=== PATIENT | female | born 1950 | race Caucasian/White ===

== ENCOUNTER 2018-11-24 15:01 | Outpatient (CLI) | payer MEDICARE ==
[~2018-11-24 15:01] MED LIST: Iopamidol 370 76% 100 ML VIAL ONE
[2018-11-24 15:28] LABS: Estimated GFR-MDRD - POC Greater than 90
--- NOTE | 2018-11-24 15:58 | CT ---
CT CHEST WITH IV CONTRAST: HISTORY: Chest mass, abnormal chest x-ray COMPARISON: None CORRELATION: Chest radiograph from earlier today FINDINGS: There is a large right intrathoracic mass measuring 6 x 5 x 7.5 cm involving the right paratracheal, hilar, subcarinal regions with obstruction of the right upper lobe bronchus and accompanying right upper lobe atelectasis. There is also a 2.3 cm nonobstructive mass in the right bronchus intermedius. There is narrowing of the pulmonary arterial branches of the right upper lobe. A small right pleural effusion is present. There is mild infiltrate in the anterior aspect of the lef t upper lobe. A 6 cm solid parenchymal nodule is noted in the left lower lobe. A 4 mm peripheral nodule is seen posteriorly in the left upper lobe. There are vascular calcifications without evidence of aneurysmal dilatation of the thoracic aorta. No pericardial or left-sided pleural effusion is seen. There are degenerative changes in the spine. No osseous lytic or osteoblastic lesions is noted. Upper abdominal tomograms are unremarkable. IMPRESSION: Right lung malignancy with lymph sena metastatic disease.
== END 2018-11-24 15:02 | disposition home or self-care (01) ==
LOC: CT 15:01
PROVIDERS: ATTEND Nurse Practitioner Family
DX: R22.2 Localized swelling, mass and lump, trunk (principal); C34.91 Malignant neoplasm of unspecified part of right bronchus or lung; C77.9 Secondary and unspecified malignant neoplasm of lymph node, unspecified
CPT/HCPCS: 71260; 82565; Q9967

== ENCOUNTER → 2018-11-26 | Day surgery (SDC) | payer MEDICARE ==
--- NOTE | 2018-11-25 14:54 | HP ---
The patient is scheduled for a bronchoscopy in the morning. HISTORY OF PRESENT ILLNESS: A 68-year-old female, a pack-a-day smoker for 30 years, quit smoking about 5 years ago when she had a diagnosis of pneumonia. Though I reviewed her chest x-ray from 2013, I did not see an obvious infiltrate or mass. She has done well until the last several months. The patient has had some increasing shortness of breath, cough, and some sinus congestion. X-ray was taken which revealed a right upper lung mass. CT confirmed the extensive right lung opacification 6 cm with a 4 mm nodule in the left upper lung, obstructing mass in the right bronchus intermedius. There was evidence of right paratracheal hilar and subcarinal adenopathy. Except for slight cough, she is asymptomatic, though she does complain of some difficulty breathing, but she can walk a block without getting markedly short of breath. No weight loss. No hemoptysis. No chest pain. PAST MEDICAL HISTORY: Coronary artery disease, high cholesterol, depression, anxiety. PAST SURGICAL HISTORY: Stent in 2004 and pneumonia in 2013. CHRONIC MEDICATIONS: 1. Advair 250/50 twice a day recently started. 2. DuoNeb several times a day as needed. 3. Atorvastatin 20. 4. Plavix 75. 5. Zoloft 100. 6. Metoprolol 50. ALLERGIES: PENICILLIN. SOCIAL HISTORY: Alcohol, minimal. Tobacco, quit 4 years ago. No substance abuse. She works for a dentist's office for many years, retired. REVIEW OF SYSTEMS: Ten-point, negative. PHYSICAL EXAMINATION: VITAL SIGNS: O2 saturation is 94% on room air, pulse 80, respiratory rate 18, and blood pressure 140/70. NECK: Adenopathy in the neck. No clubbing. CHEST: Decreased breath sounds, right lung. Left lung, unremarkable. There is no wheezing. CARDIAC: Normal S1 and S2. No gallops. ABDOMEN: No masses. DIAGNOSTIC DATA: Pulmonary function tests a presently shows moderately severe COPD with an FEV1 of 47% predicted. IMPRESSION: 1. Right upper lung mass with extensive ipsilateral hilar subcarinal adenopathy. 2. Moderately severe chronic obstructive pulmonary disease. 3. Coronary artery disease, status post single stent. 4. Former smoker, anxiety. Diagnostic bronchoscopy and biopsies will be performed tomorrow. PET scan has been ordered. We will see her following that. Job ID: [id number]
[2018-11-25 14:56] VITALS: BMI 27.8
[~2018-11-26] MED LIST changes: +Benzocaine 20% Spray 60 ML CAN ONE; +Bupivacaine 0.25% HCL 30 ML VIAL ONE; +Fentanyl 100 MCG/2 ML VIAL ONE; -Iopamidol 370 76% 100 ML VIAL ONE; +Lidocaine 1% (PF) 30 ML VIAL ONE; +Lidocaine 4% PF 5 ML AMP NEB SCH; +Midazolam HCl 2 mg/2 ml Vial ONE; +Sodium Chloride 0.9% 1,000 ML IV SCH
--- NOTE | 2018-11-26 10:09 | OP ---
DATE OF PROCEDURE: 11/26/2018 PROCEDURE PERFORMED: Bronchoscopy with biopsy. INDICATION: Right upper lung mass, rule out bronchogenic carcinoma. POSTBRONCHOSCOPY DIAGNOSIS: Right upper lung mass, rule out bronchogenic carcinoma. The right upper lung bronchus was completely occluded with a large nodular friable mass lesion. DESCRIPTION OF PROCEDURE: After informed consent, the patient received DuoNeb with 4 mL of 4% lidocaine. During the procedure, she received a total of 2 of Versed and 50 Fentanyl. The right nostril was prepped with lidocaine jelly. Cetacaine spray was sprayed in the back of the throat. The Olympus video flexible bronchoscope was then passed via the right nostril. Pharynx, hypopharynx and vocal cords were visualized, which were normal. Entering the trachea, this was slightly blunted into the right lung. The mainstem bronchus was slightly irregular. The entire right upper lung was completely occluded by a large polypoid mass. It appeared very smooth. I was able to maneuver the bronchoscope below the mass into the lower lobe bronchus. The bronchus intermedius, right middle lobe and right lower lobe, all were visualized without any gross abnormality noticed. The area of the right upper lung was lavaged with normal saline. Multiple biopsies from the peripheral mass were done. This blood profusely from the biopsy. It required 1:10,000 epinephrine, a total of 10 mL to control the bleeding. Multiple biopsies obtained and brushings were obtained from the same area. The patient tolerated the procedure well. The left lung was inspected following the biopsy, which was unremarkable. No endobronchial obstruction or blood was seen. The biopsy was sent to pathology, brushings for cytology. Washing was sent for cytology. BRIEF DISCHARGE NOTE: The patient tolerated the procedure well. Results reviewed well to the patient and family. Further recommendation above. Job ID: [id number]
== END ==
LOC: SDC 06:44
PROVIDERS: ATTEND Internal Medicine Pulmonary Disease
PROC: 0BD48ZX Extraction of Right Upper Lobe Bronchus, Via Natural or Artificial Opening Endoscopic, Diagnostic (ICD-10-PCS; principal; 2018-11-26)
PROC: 0BDC8ZX Extraction of Right Upper Lung Lobe, Via Natural or Artificial Opening Endoscopic, Diagnostic (ICD-10-PCS; 2018-11-26)
DX: C34.11 Malignant neoplasm of upper lobe, right bronchus or lung (principal); I10 Essential (primary) hypertension; K21.9 Gastro-esophageal reflux disease without esophagitis; I25.10 Atherosclerotic heart disease of native coronary artery without angina pectoris; M81.0 Age-related osteoporosis without current pathological fracture; E78.00 Pure hypercholesterolemia, unspecified; F32.9 Major depressive disorder, single episode, unspecified; F41.9 Anxiety disorder, unspecified; J44.9 Chronic obstructive pulmonary disease, unspecified; E78.2 Mixed hyperlipidemia; Z87.891 Personal history of nicotine dependence; Z79.01 Long term (current) use of anticoagulants; Z79.899 Other long term (current) drug therapy; Z88.0 Allergy status to penicillin; Z88.1 Allergy status to other antibiotic agents
CPT/HCPCS: 88104; 88112; 88305; 88341; 88342; 88360; 99152; 99153; J2001; J2250; J3010; S0020

== ENCOUNTER 2018-12-03 10:15 | Day surgery (SDC) | payer MEDICARE ==
[2018-12-03] MEDS ORDERED: Levofloxacin 500 mg/D5W 100 ml Premix Bag ONE (11:23)
[2018-12-03] MEDS ORDERED: Bupivacaine HCl 0.5%/Epinephrine 1:200,000/PF 30 ml Vial ONE ×2 (13:52→13:56)
[2018-12-03] MEDS ORDERED: Lidocaine 2% PF 5 ML VIAL ONE ×2 (13:52→13:56)
[2018-12-03] MEDS ORDERED: Fentanyl 100 MCG/2 ML VIAL ONE (13:57)
--- NOTE | 2018-12-03 15:14 | RAD ---
XR Chest 1 View HISTORY: Lung cancer, Mediport placement FINDINGS: The heart size is normal. The aorta is tortuous. There is a left subclavian Port-A-Cath with tip in t he projection of the SVC. No pneumothorax is seen. There is a right hilar mass and atelectatic change in the right upper lobe.
--- NOTE | 2018-12-03 20:54 | OP ---
DATE OF PROCEDURE: 12/03/2018 PREOPERATIVE DIAGNOSIS: Lung cancer, poor IV access. POSTOPERATIVE DIAGNOSIS: Lung cancer, poor IV access. PROCEDURE PERFORMED: Left subclavian vein low-profile MediPort. ANESTHESIA: TIVA, local 0.5% Marcaine with epinephrine 30 mL mixed with 2% Xylocaine 10 mL, fluoroscopy used. DESCRIPTION OF PROCEDURE: The patient was taken to the operating room, where in supine position and under intravenous sedation, neck and chest prepared with ChloraPrep and draped in routine fashion. Local anesthetic was infiltrated in the skin and subcutaneous tissue about the operative site. Trocar cannulated the left subclavian vein, J-wire threaded, trocar catheter removed. Skin site was enlarged sharply creating a subcutaneous pocket. Dilator and Peel-Away sheath placed over the J-wire in the subclavian vein and J-wire and dilator removed. Catheter placed with the Peel-Away sheath. Peel-Away sheath removed fluoroscopically, tip placed in optimal position in superior vena cava, tailored to length and connected to the MediPort, placed in subcutaneous pocket, secured with 2 interrupted sutures of 3-0 Prolene. Subcutaneous tissue was approximated with 3-0 Monocryl, skin with subdermal 4-0 Monocryl, and [place] glue applied. Esposito needle aspirated the port and good return of venous blood, and then flushed with heparinized saline solution. Fluoroscopy revealed good line and MediPort placement. Job ID: [id number]
== END 2018-12-03 15:37 | disposition home or self-care (01) ==
LOC: SDC 10:15
PROVIDERS: ATTEND Specialist
PROC: 0JH63WZ Insertion of Totally Implantable Vascular Access Device into Chest Subcutaneous Tissue and Fascia, Percutaneous Approach (ICD-10-PCS; principal; 2018-12-03)
DX: C34.11 Malignant neoplasm of upper lobe, right bronchus or lung (principal); C77.9 Secondary and unspecified malignant neoplasm of lymph node, unspecified; J44.9 Chronic obstructive pulmonary disease, unspecified; Z87.891 Personal history of nicotine dependence; Z79.02 Long term (current) use of antithrombotics/antiplatelets; Z79.899 Other long term (current) drug therapy; Z88.0 Allergy status to penicillin; Z88.1 Allergy status to other antibiotic agents
CPT/HCPCS: 36561; 71045; C1788; J0670; J1642; J1956; J2001; J3010

== ENCOUNTER 2018-12-14 12:43 | Outpatient (CLI) | payer MEDICARE ==
[~2018-12-14 12:43] MED LIST changes: -Benzocaine 20% Spray 60 ML CAN ONE; -Bupivacaine 0.25% HCL 30 ML VIAL ONE; -Fentanyl 100 MCG/2 ML VIAL ONE; +Gadobenate Dimeglumine 529 MG/1 ML (20ML VIAL) ONE; -Lidocaine 1% (PF) 30 ML VIAL ONE; -Lidocaine 4% PF 5 ML AMP NEB SCH; -Midazolam HCl 2 mg/2 ml Vial ONE; -Sodium Chloride 0.9% 1,000 ML IV SCH
--- NOTE | 2018-12-14 13:53 | MRI ---
Exam: Brain MRI with and without contrast HISTORY: Lung cancer. Evaluate for brain metastases. COMPARISON: None FINDINGS: Gradient echo sequence: No hemorrhage Calvarium: Appropriate T1 marrow signal intensity Midline brain parenchyma: Unremarkable Cerebrum:No parenchymal mass, mass effect or midline shift. Brain volume, age-appropriate. Cortical g ray-white matter differentiation is preserved. T2 and FLAIR white matter hyperintensities due to chronic small vessel ischemic change. Ventricles: No evidence of hydrocephalus. Sinuses and mastoid air cells: Adequate aeration Diffusion: Central arterial flow is maintained. Absent restricted diffusion. Postcontrast images: No pathologic enhancement of the brain parenchyma. IMPRESSION: 1. Absent restricted diffusion. No acute infarct 2. No pathologic enhancement of the brain parenchyma.
== END 2018-12-14 12:44 | disposition home or self-care (01) ==
LOC: MRI 12:43
PROVIDERS: ATTEND Radiology Radiation Oncology
DX: C34.90 Malignant neoplasm of unspecified part of unspecified bronchus or lung (principal)
CPT/HCPCS: 70553; A9577

== ENCOUNTER 2019-02-24 09:06 | Outpatient (CLI) | payer MEDICARE ==
--- NOTE | 2019-02-24 13:02 | PET ---
PET CT: HISTORY: A 68-year-old female with lung cancer. Exam requested to evaluate response to treatment. The patient is undergoing chemotherapy. COMPARISON: PET CT dated 12/02/2018. TECHNIQUE: PET scan with CT attenuation correction was performed from the base of the brain to the proximal thig hs following the intravenous administration of 12 millicuries of F18 fluorodeoxyglucose in the right antecubital fossa. FINDINGS: There is new focal nodular uptake in the superior segment of the right lower lobe which measures 2.3 cm in AP dimension and has an SUV of 4.2. Residual hilar uptake is seen with an SUV of 4.4. Increased uptake in the right paratracheal lymph node is noted with an SUV of 3.3. The remainder of the lesion s noted on the previous exam have otherwise resolved in the interim. There is physiologic activity in the GI and tracts. No hypermetabolic liver, adrenal or skeletal lesions are seen. CT scan used for attenuation correction demonstrates no evidence of pleural effusions or ascites. IMPRESSION: Mixed response to therapy since 12/02/2018. POS: ASTRID
== END 2019-02-24 09:07 | disposition home or self-care (01) ==
LOC: PET 09:06
PROVIDERS: ATTEND Internal Medicine Hematology & Oncology
DX: C34.90 Malignant neoplasm of unspecified part of unspecified bronchus or lung (principal)
CPT/HCPCS: 78815; A9552

== ENCOUNTER 2019-05-10 10:25 | Outpatient (CLI) | payer MEDICARE ==
--- NOTE | 2019-05-10 11:04 | RAD ---
EXAM: Chest 2 views: HISTORY: Bronchitis COMPARISON: 11/24/2018 FINDINGS: There is a normal-sized cardiomediastinal silhouette. A left subclavian Mediport is seen with its ti p in the superior vena cava. The previously seen right upper lobe opacification has significantly improved. However, there appears to be volume loss in the right upper lobe and slight opacity of the right upper lobe. The bones are unremarkable. IMPRESSION: Improvement in right upper lobe opacification
== END 2019-05-10 10:26 | disposition home or self-care (01) ==
LOC: SCSRAD 10:25
PROVIDERS: ATTEND Nurse Practitioner Family
DX: J40 Bronchitis, not specified as acute or chronic (principal); R91.8 Other nonspecific abnormal finding of lung field
CPT/HCPCS: 71046

== ENCOUNTER 2019-06-12 09:55 | Inpatient (IN) | payer MEDICARE ==
[2019-06-12] MEDS ORDERED: Dexamethasone 10 MG/ML VIAL ONE (10:51)
[2019-06-12] MEDS ORDERED: Cefepime 2 GM VIAL ONE (10:51)
[2019-06-12 10:56] LABS: ALT (SGPT) 16 U/L (8-55); AST (SGOT) 22 U/L (5-34); Albumin 4.1 g/dL (3.4-4.8); Alkaline Phosphatase 103 U/L (40-110); Anion Gap 21 mmol/L (10-20); BUN (Urea Nitrogen) 42 mg/dL (9.8-20.1); Bilirubin, Total 0.7 mg/dL (0.2-1.2); Calc. Creatinine Clearance 0 mL/min (70-130); Calcium 9.9 mg/dL (7.8-10.44); Carbon Dioxide 21 mmol/L (23-31); Chloride 96 mmol/L (98-107); Estimated GFR-MDRD 20; Globulin 3.8 g/dL (2.4-3.5); Glucose 112 mg/dL (80-115); Potassium 3.5 mmol/L (3.5-5.1); Protein, Total 7.9 g/dL (6.0-8.3); Sodium 134 mmol/L (136-145)
--- NOTE | 2019-06-12 10:58 | RAD ---
EXAM: Single view of the chest HISTORY: Chest pain and wheezing COMPARISON: 05/10/2019 FINDINGS: Single view of the chest shows a normal sized cardiomediastinal silhouette. The Mediport i s unchanged in position. There is collapse of the right upper lobe. Increased interstitial markings are seen in the lung bases. The bones are unremarkable. IMPRESSION: Right upper lobe collapse. This likely is sequelae from a known right hilar mass
[2019-06-12 11:00] LABS: Band 7 % (5-11); Hemoglobin 14.7 g/dL (12.0-16.0); Lymphocytes 21 % (21-51); MDiff Complete? YES; Mean Corpuscular HGB CONC 33.7 g/dL (32.0-36.0); Mean Corpuscular Hemoglobin 28.4 pg (27.0-31.0); Mean Corpuscular Volume 84.2 fL (78.0-98.0); Mean Platelet Volume 7.7 fL (7.4-10.4); Monocytes 9 % (0-10); Neutrophil 62 % (42-75); Platelet Count 207 thou/uL (130-400); RBC Distribution Width 14.1 % (11.5-14.5); Red Blood Cell (RBC) Count 5.16 mill/uL (4.20-5.40); White Blood Cell (WBC) Count 20.2 thou/uL (4.8-10.8)
[2019-06-12] MEDS: Cefepime 2 GM in Sodium Chloride 0.9% 100 ML IVPB SCH (11:00)
[2019-06-12 11:12] LABS: CK (CPK) 74 U/L (29-168); Lipase 12 U/L (8-78)
[2019-06-12 11:18] LABS: Bacteria/HPF None Seen HPF (None Seen); Bilirubin Negative (Negative); Blood, Urine Negative (Negative); Clarity Clear (Clear); Glucose, Urine (Dipstick) Normal (Negative); Leukocyte Negative Leu/uL (Negative); Nitrite Negative (Negative); Protein, Urine (Dipstick) 30 mg/dL (Neg-Trace); RBC/HPF 0-3 HPF (0-3); Squamous Epithelial None Seen HPF (0-3); WBC/HPF 0-3 HPF (0-3)
[2019-06-12 11:30] LABS: CKMB 1.9 ng/mL (0-6.6)
[2019-06-12] MEDS ORDERED: Ondansetron ODT 4 MG TAB SL PRN (14:09)
[2019-06-12] MEDS ORDERED: Ondansetron PF 4 MG/2 ML Vial IVP PRN (14:09)
[2019-06-12] MEDS: Sodium Chloride 0.9% 1,000 ML IV SCH ×2 (14:21→22:51)
[2019-06-12] MEDS ORDERED: Sodium Chloride 0.9% 1,000 ML IV SCH (15:00)
[2019-06-12 18:30] VITALS: BMI 27.7
--- NOTE | 2019-06-12 19:31 | PDOC.HHP ---
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 Over the past week, has been eating and drinking less, had a couple of low volume vomiting episodes the day prior to presentation and appeared weaker than usual, so came to the ED. Endorses dry cough over the past few days and not having a bowel movement for the past 3 days whereas baseline daily. Has no other complaints and denies fever , chills, night sweats, chest pain, pleuritic pain, palpitations, dyspnea, sputum production, abdominal pain, diarrhea, dysuria, skin lesion, recent travel , exposure to sick contacts, recent change in medications. ED Course: In the ED, was found to be hypotensive, tachypnic, and tachycardic so was administered a bolus, after which promptly improved. She was admitted for sepsis Hospitalist ROS - Review of Systems Constitutional: reports: weakness, malaise. denies: fever, chills, sweats, other Eyes: denies: pain, vision change, conjunctivae inflammation, eyelid inflammation, redness, other ENT: denies: ear pain, ear discharge, nose pain, nose discharge, nose congestion , mouth pain, mouth swelling, throat pain, throat swelling, other Respiratory: reports: cough, dry. denies: shortness of breath, hemoptysis, SOB with excertion, pleuritic pain, sputum, wheezing, other Cardiovascular: denies: chest pain, palpitations, orthopnea, paroxysmal noc. dyspnea, edema, light headedness, other Gastrointestinal: reports: nausea, vomiting, constipation. denies: abdominal pain, diarrhea, melena, hematochezia Genitourinary: denies: dysuria, frequency, incontinence, hematuria, retention, other Musculoskeletal: reports: back pain Skin: denies: rash, lesions, hilda, bruising, other Neurological: reports: weakness. denies: numbness, incoordination, change in speech, confusion, seizures - Medication Medications: Active Medications Generic Name Dose Route Start Last Admin Trade Name Freq PRN Reason Stop Dose Admin Sodium Chloride 1,000 mls @ 120 mls/hr 06/12/19 14:09 06/12/19 14:21 Normal Saline 0.9% IV 06/13/19 02:09 1,000 mls .[id number] PAULA Administration Cefepime HCl 2 gm/ Sodium 100 mls @ 200 mls/hr 06/12/19 11:00 06/12/19 11:00 Chloride IVPB Not Given Q24HR [facility] Hospitalist History - Past Medical History Cardiac: reports: CAD, HTN Pulmonary: reports: Other (squamous cell carcinoma of right lung; patient and family at bedside deny ever being diagnosed with COPD or asthma). denies: asthma, COPD Rheumatologic: reports: no pertinent history Infectious Disease: reports: Other (pneumonia a few weeks ago) ENT: reports: no pertinent history Endocrine: reports: no pertinent history - Past Surgical History Past Surgical History: reports: Appendectomy, Hysterectomy Other Surgical History: lung biopsy - Family History Family History: reports: cardiac disorder, hypertension - Social History Smoking Status: Former smoker Tobacco Type: cigarettes Alcohol: reports: Occassional Drugs: reports: none Living Situation: With Family Domestic Violence: Negative Activity level: independent ambulation - Exam General Appearance: NAD, awake alert, ill appearing Eye: PERRL, anicteric sclera ENT: normocephalic atraumatic ENT - other findings: no nuchal rigidiy, brudsinski -ve Neck: supple, symmetric, no JVD Heart: no murmur, no gallops, no rubs, normal peripheral pulses Heart - other findings: regular rhythm, tachycardic; left mediport appears noninfected Respiratory: no wheezes, no rales, no ronchi Respiratory - other findings: severely reduced right lung sounds; left lung sounds unremarkable Gastrointestinal: soft, non-distended, normal bowel sounds Gastrointestinal - other findings: diffuse mild tenderness mostly epigastric Extremities: no edema Neurological: cranial nerve grossly intact, no focal deficits Psychiatric: normal affect, normal behavior, oriented to person, oriented to place. negative: oriented to time Hospitalist Results - Labs Result Diagrams: 06/12/19 10:21 06/12/19 10:21 Lab results: WBC 20.2 thou/uL (4.8-10.8) H 06/12/19 10:21 Hgb 14.7 g/dL (12.0-16.0) 06/12/19 10:21 Hct 43.5 % (36.0-47.0) 06/12/19 10:21 MCV 84.2 fL (78.0-98.0) 06/12/19 10:21 Plt Count 207 thou/uL (130-400) 06/12/19 10:21 Band Neuts % (Manual) 7 % (5-11) 06/12/19 10:21 Sodium 134 mmol/L (136-145) L 06/12/19 10:21 Potassium 3.5 mmol/L (3.5-5.1) 06/12/19 10:21 Chloride 96 mmol/L (98-107) L 06/12/19 10:21 Carbon Dioxide 21 mmol/L (23-31) L 06/12/19 10:21 BUN 42 mg/dL (9.8-20.1) H 06/12/19 10:21 Creatinine 2.39 mg/dL (0.6-1.1) H 06/12/19 10:21 Glucose 112 mg/dL (80-115) 06/12/19 10:21 Lactic Acid 1.8 mmol/L (0.5-2.2) 06/12/19 10:21 Calcium 9.9 mg/dL (7.8-10.44) 06/12/19 10:21 Total Bilirubin 0.7 mg/dL (0.2-1.2) 06/12/19 10:21 AST 22 U/L (5-34) 06/12/19 10:21 ALT 16 U/L (8-55) 06/12/19 10:21 Alkaline Phosphatase 103 U/L (40-110) 06/12/19 10:21 Creatine Kinase 74 U/L (29-168) 06/12/19 10:38 CK-MB (CK-2) 1.9 ng/mL (0-6.6) 06/12/19 10:43 Troponin I 0.029 ng/mL (< 0.028) H 06/12/19 10:43 B-Natriuretic Peptide 78.6 pg/mL (0-100) 06/12/19 10:38 Serum Total Protein 7.9 g/dL (6.0-8.3) 06/12/19 10:21 Albumin 4.1 g/dL (3.4-4.8) 06/12/19 10:21 Lipase 12 U/L (8-78) 06/12/19 10:38 Urine Ketones 20 mg/dL (Negative) A 06/12/19 10:36 Urine Blood Negative (Negative) 06/12/19 10:36 Urine Nitrite Negative (Negative) 06/12/19 10:36 Ur Leukocyte Esterase Negative Chandra/uL (Negative) 06/12/19 10:36 Urine RBC 0-3 HPF (0-3) 06/12/19 10:36 Urine WBC 0-3 HPF (0-3) 06/12/19 10:36 Ur Squamous Epith Cells None Seen HPF (0-3) 06/12/19 10:36 Urine Bacteria None Seen HPF (None Seen) 06/12/19 10:36 - EKG Interpretation EKG: sinus tachycardia with no acute ischemic signs Hospitalist H&P A/P - Problem (1) Sepsis associated hypotension Code(s): A41.9 - SEPSIS, UNSPECIFIED ORGANISM; I95.9 - HYPOTENSION, UNSPECIFIED Status: Acute (2) Decreased oral intake Code(s): R63.8 - OTHER SYMPTOMS AND SIGNS CONCERNING FOOD AND FLUID INTAKE Status: Acute (3) Constipation Code(s): K59.00 - CONSTIPATION, UNSPECIFIED Status: Acute (4) Acute renal failure Status: Acute - Plan Plan: #sepsis #recurrent postobstructive pneumonia -qSOFA 3/3 on presentation -BP improved s/p bolus -left thorax mediport appears noninfected; if patient has bacteremia, may require removal -CXR shows collapsed RUL due to mass effect; breathing and saturating well on 2L NC -started on vanc and cefepime, infectious workup pending -last time she received chemo reportedly 04/14; however, patient endorses taking chemo about a week ago; will clarify #reduced oral intake -likely due to sepsis, possibly recent reinitiation of chemo (will clarify) -has no signs or symptoms c/w colitis #ANGELIKA -likely prerenal due to reduced PO intake -may be due to chemo (will clarify) #constipation -baseline 1 BM / day -last BM 3 days ago; likely due to reduced oral intake #dispo/PPX code: full code; is surrogate decision maker GI PPX: no indication DVT PPX: enoxeparin Plan: -holding home respiratory treatments since per family, patient never diagnosed with COPD or asthma and treatments were for recent pneumonia episode -holding metoprolol for labile BP -continue vanc, cef, IVF; most likely etiology at this point postobstructive pneumonia considering CXR findings and recent pneumonia; pending infectious workup -BMP, CBC in AM
[2019-06-12] MEDS: Vancomycin HCl 1 GM in Premix Bag 1 BAG IVPB SCH (22:51)
[2019-06-13] MEDS: Sodium Chloride 0.9% 1,000 ML IV SCH ×3 (01:48→15:08)
[2019-06-13 05:23] LABS: #Lymphocytes 0.5 thou/uL (1.20-3.40); #Monocytes 0.9 thou/uL (0.11-0.59); #Neutrophils 11.7 thou/uL (1.40-6.50); %Basophils 0.1 % (0.0-1.0); %Eosinophils 0.2 % (0.0-10.0); %Lymphocytes 3.9 % (21.0-51.0); %Monocytes 6.8 % (0.0-10.0); %Neutrophils 89.1 % (42.0-75.0); Hemoglobin 11.4 g/dL (12.0-16.0); Mean Corpuscular HGB CONC 33.1 g/dL (32.0-36.0); Mean Corpuscular Volume 84.8 fL (78.0-98.0); Mean Platelet Volume 7.2 fL (7.4-10.4); Platelet Count 152 thou/uL (130-400); RBC Distribution Width 13.8 % (11.5-14.5); Red Blood Cell (RBC) Count 4.06 mill/uL (4.20-5.40); White Blood Cell (WBC) Count 13.1 thou/uL (4.8-10.8)
[2019-06-13 05:45] LABS: Anion Gap 10 mmol/L (10-20); BUN (Urea Nitrogen) 21 mg/dL (9.8-20.1); Calc. Creatinine Clearance 108 mL/min (70-130); Calcium 8.8 mg/dL (7.8-10.44); Carbon Dioxide 25 mmol/L (23-31); Chloride 104 mmol/L (98-107); Estimated GFR-MDRD Greater than 90; Glucose 138 mg/dL (80-115); Magnesium 1.7 mg/dL (1.6-2.6); Potassium 3.1 mmol/L (3.5-5.1); Sodium 136 mmol/L (136-145)
[2019-06-13] MEDS: Clopidogrel Bisulfate 75 MG TAB PO SCH (09:00)
[2019-06-13] MEDS ORDERED: Enoxaparin Sodium 30 MG/0.3 ML SYRINGE SC SCH (09:00)
[2019-06-13] MEDS ORDERED: Prevnar 13-Val Conj/PF 0.5 ML SYRINGE IM ONE (09:00)
[2019-06-13] MEDS: Atorvastatin Calcium 20 MG TAB PO SCH (09:27)
[2019-06-13] MEDS: Cefepime 2 GM in Sodium Chloride 0.9% 100 ML IVPB SCH (10:34)
[2019-06-13] MEDS: Vancomycin HCl 1 GM in Premix Bag 1 BAG IVPB SCH ×2 (11:17→23:56)
--- NOTE | 2019-06-13 11:29 | RAD ---
CHEST 1 VIEW: Date: 06/13/2019 HISTORY: Follow-up pneumonia. COMPARISON: 06/12/2019. FINDINGS: There has been considerable worsening of the right upper lobe atelectasis with what appears to be com plete right upper lobe collapse at this point. Patchy parenchymal changes noted in both bases, somewh at more prominent in the right base, concerning for pneumonia or some postobstructive atelectasis. Bi lateral pleural effusions. Heterogeneous bone demineralization. Left subclavian catheter and injectio n port. IMPRESSION: Considerable worsening in the right upper lobe atelectasis from prior study. Focal parenchymal change s in the right lower lobe, possibly pneumonia and/or atelectasis, with some patchy parenchymal change s in the left base. Small pleural effusions bilaterally. CODE T. POS: TPC
--- NOTE | 2019-06-13 14:33 | PDOC.PALCO ---
Palliative Care Consult - Consult Details Requesting Physician: Dr Reagan Reason for Consult: goals of care Family Members Present: None initially - Pertinent HPI 68 year old female who was diagnosed with Lung Cancer in Nov 2018. Received chemo to treat. She relayed that at home she experienced a decrease in appetite and overall oral intake over the past week, with vomiting day prior to presentation to the emergency room. Emergency room evaluation identified hypotension, tachycardia, and suspected sepsis. 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 - Pertinent PMH Squamous cell carcinoma right lung, CAD, HTN, other marin no significant medical history. - Social History Smoking Status: Former smoker Smoking: cigarettes Alcohol Use: occasional Drug Use History: none Living Situation: - Medications MAR Reviewed: Yes - Allergies Allergies/Adverse Reactions: Allergies Allergy/AdvReac Type Severity Reaction Status Date / Time erythromycin base Allergy Unknown Verified 12/02/18 14:47 [Erythromycin Base] Penicillins Allergy Unknown Verified 06/12/19 14:36 - Subjective Awake, alert. Complains of mild constipation. Cheerful and talkative. - ROS Constitutional: weakness ENT: other (Negative for difficulity swallowing, congestion) Respiratory: shortness of breath, other (negative for cough. ) Cardiology: other (Negative for chest pain, discomfort ) Gastrointestinal: constipation Genitourinary: other Neurological: other (negative for numbness, confusion) Skin: other (Negative for changes in skin texture, rash or lesions) - Objective Vital Signs: Vital Signs - Most Recent Temp Pulse Resp BP Pulse Ox 97.3 F L 97 18 163/76 H 94 L 06/13/19 12:35 06/13/19 12:35 06/13/19 12:35 06/13/19 12:35 06/13/19 12:35 Palliative Performance Scale: 70 - Physical Exam Constitutional: ill appearing HEENT: EOMI, moist MMs, sclera anicteric Respiratory: no wheezing (Appears mildly short of breath with conversation) Cardiovascular: no significant murmur Gastrointestinal: continent, non-tender, positive bowel sounds Genitourinary: continent Musculoskeletal: no cyanosis, no clubbing Neurology: moves all 4 limbs, no focal deficits Skin: cap refill <2 seconds, no lesions, no rash Psychiatric: A&O x 3, normal mood - Problem List (1) Palliative care encounter Code(s): Z51.5 - ENCOUNTER FOR PALLIATIVE CARE Current Visit: Yes Status: Acute (2) Sepsis Code(s): A41.9 - SEPSIS, UNSPECIFIED ORGANISM Current Visit: Yes Status: Acute (3) Squamous cell carcinoma Code(s): BHT4384 - Current Visit: Yes Status: Acute (4) Constipation Code(s): K59.00 - CONSTIPATION, UNSPECIFIED Current Visit: Yes Status: Acute (5) Decreased oral intake Code(s): R63.8 - OTHER SYMPTOMS AND SIGNS CONCERNING FOOD AND FLUID INTAKE Current Visit: Yes Status: Acute - Plan/Recommendations Plan: Initial Palliative Care meeting with patient. Introduced palliative care, and symptom management and goals of care. Patient gave short life review, she was a dental media center assistant and her greatest neftali is her family and crafting. *PRN medication for constipation *Initiated goal of care conversation, patient states she is hopeful that aggressive therapies will allow her to have a meaningful life. *Family and visitors arrived during visit, will continue to follow. Communicated with Thomas Treviño RNenterprise business architect, please also refer to her notes as needed. [50] minutes spent on this encounter with >50% of the time in counseling and coordination of care. Thank you for this very appropriate consult.
[2019-06-13] MEDS ORDERED: Bisacodyl 5 MG TAB PO PRN (14:44)
[2019-06-13 22:23] LABS: Vancomycin, Trough 8.9 ug/mL
[2019-06-13] MEDS ORDERED: Magnesium Oxide 400 MG TAB PO SCH (22:30)
[2019-06-13] MEDS: Potassium Chloride 20 MEQ TAB PO SCH (23:57)
[2019-06-14] MEDS: Sodium Chloride 0.9% 1,000 ML IV SCH ×2 (00:03→20:10)
--- NOTE | 2019-06-14 00:17 | PDOC.HOSPP ---
- Subjective Encounter Date: 06/13/19 Encounter Time: 11:00 Subjective: no overnight events. This morning, feels much better and at baseline. Appetite improved, ambulating without issues, and has no complaints. - Objective Vital Signs & Weight: Vital Signs (12 hours) Temp Pulse Resp BP Pulse Ox 06/13/19 22:31 88 18 94 L 06/13/19 20:00 98.2 F 97 16 164/73 H 93 L 06/13/19 19:17 94 18 94 L 06/13/19 17:00 142/64 H 06/13/19 15:17 90 18 94 L 06/13/19 12:35 97.3 F L 97 18 163/76 H 94 L Weight Admit Weight 161 lb 8 oz Weight 161 lb 8 oz I&O: 06/12/19 06/13/19 06/14/19 06:59 06:59 06:59 Intake Total 1358 Output Total 400 Balance 958 Result Diagrams: 06/13/19 04:24 06/13/19 04:24 Hospitalist ROS - Review of Systems Constitutional: denies: fever, chills, sweats, weakness, malaise, other Respiratory: denies: cough, dry, shortness of breath, hemoptysis, SOB with excertion, pleuritic pain, sputum, wheezing, other Cardiovascular: denies: chest pain, palpitations, orthopnea, paroxysmal noc. dyspnea, edema, light headedness, other Gastrointestinal: denies: nausea, vomiting, abdominal pain, diarrhea, constipation, melena, hematochezia, other Genitourinary: denies: dysuria, frequency, incontinence, hematuria, retention, other Neurological: reports: weakness. denies: numbness, incoordination, change in speech, confusion, seizures - Medication Medications: Active Medications Generic Name Dose Route Start Last Admin Trade Name Freq PRN Reason Stop Dose Admin Albuterol/Ipratropium 3 ml 06/13/19 02:30 06/13/19 22:31 Duoneb NEB 3 ml [id number] PAULA Administration Atorvastatin Calcium 20 mg 06/13/19 09:00 06/13/19 09:27 Lipitor PO 20 mg DAILY PAULA Administration Clopidogrel Bisulfate 75 mg 06/13/19 09:00 06/13/19 09:00 Plavix PO Not Given DAILY [facility] Enoxaparin Sodium 30 mg 02/17/20 09:00 06/13/19 09:00 Lovenox SC Not Given 0900 PAULA Vancomycin HCl 1 gm/ Device 200 mls @ 200 mls/hr 06/12/19 23:00 06/13/19 23: 56 IVPB 200 mls 1100,2300 PAULA Administration Cefepime HCl 2 gm/ Sodium 100 mls @ 200 mls/hr 06/12/19 11:00 06/13/19 10:34 Chloride IVPB 100 mls Q24HR PAULA Administration Sodium Chloride 1,000 mls @ 75 mls/hr 06/13/19 01:48 06/14/19 00:03 Normal Saline 0.9% IV 1,000 mls .[id number] PAULA Administration Magnesium Oxide 400 mg 06/13/19 22:30 06/13/19 23:57 Magnesium Oxide PO 06/14/19 00:30 400 mg NOW PAULA Administration Potassium Chloride 40 meq 06/13/19 22:30 06/13/19 23:57 K-Dur PO 06/14/19 02:31 40 meq 0230,2230 PAULA Administration Sertraline HCl 100 mg 06/13/19 09:00 06/13/19 09:27 Zoloft PO 100 mg DAILY PAULA Administration - Exam General Appearance: NAD, awake alert Eye: PERRL ENT: normocephalic atraumatic Neck: supple, symmetric, no JVD Heart: RRR, no murmur, no gallops, no rubs Respiratory: no wheezes, no rales, no ronchi Respiratory - other findings: left lung sound normal; right lung upper and mid cain no breath sounds Gastrointestinal: soft, non-tender, non-distended, normal bowel sounds Extremities: no edema Psychiatric: normal affect, normal behavior, A&O x 3 Hosp A/P (1) Sepsis associated hypotension Code(s): A41.9 - SEPSIS, UNSPECIFIED ORGANISM; I95.9 - HYPOTENSION, UNSPECIFIED Status: Acute (2) Decreased oral intake Code(s): R63.8 - OTHER SYMPTOMS AND SIGNS CONCERNING FOOD AND FLUID INTAKE Status: Acute (3) Constipation Code(s): K59.00 - CONSTIPATION, UNSPECIFIED Status: Acute (4) Acute renal failure Status: Acute - Plan -unlikely infectious etiology based on presentation and infectious workup; likely result of mass effect of tumor -CXR worse, showing right tracheal deviation as well was superior deviation of right horizontal fissure, c/w postobtructive upper lobe collapse Plan: -consult pulmonology -continue supportive care -deescalate antibiotics
[2019-06-14] MEDS ORDERED: Vancomycin HCl 500 MG in Sodium Chloride 0.9% 100 ML IVPB SCH (00:30)
[2019-06-14] MEDS: Potassium Chloride 20 MEQ TAB PO SCH (03:42)
[2019-06-14 06:51] LABS: #Lymphocytes 0.9 thou/uL (1.20-3.40); #Monocytes 0.8 thou/uL (0.11-0.59); #Neutrophils 9.2 thou/uL (1.40-6.50); %Basophils 0.1 % (0.0-1.0); %Eosinophils 0.2 % (0.0-10.0); %Lymphocytes 8.4 % (21.0-51.0); %Monocytes 7.1 % (0.0-10.0); %Neutrophils 84.2 % (42.0-75.0); Hemoglobin 10.2 g/dL (12.0-16.0); Mean Corpuscular HGB CONC 32.9 g/dL (32.0-36.0); Mean Corpuscular Hemoglobin 27.9 pg (27.0-31.0); Mean Corpuscular Volume 84.8 fL (78.0-98.0); Mean Platelet Volume 6.8 fL (7.4-10.4); Platelet Count 169 thou/uL (130-400); RBC Distribution Width 13.6 % (11.5-14.5); Red Blood Cell (RBC) Count 3.64 mill/uL (4.20-5.40)
[2019-06-14 07:00] LABS: INR-International Normal Ratio 1.2; Prothrombin Time 14.7 SEC (12.0-14.7)
[2019-06-14 07:01] LABS: PTT 52.5 SEC (22.9-36.1)
[2019-06-14 07:11] LABS: Anion Gap 10 mmol/L (10-20); BUN (Urea Nitrogen) 8 mg/dL (9.8-20.1); Calc. Creatinine Clearance 131 mL/min (70-130); Calcium 8.7 mg/dL (7.8-10.44); Carbon Dioxide 29 mmol/L (23-31); Chloride 103 mmol/L (98-107); Estimated GFR-MDRD Greater than 90; Glucose 110 mg/dL (80-115); Magnesium 1.6 mg/dL (1.6-2.6); Potassium 3.6 mmol/L (3.5-5.1); Sodium 138 mmol/L (136-145)
[2019-06-14] MEDS: Atorvastatin Calcium 20 MG TAB PO SCH ×2 (09:00→13:01)
[2019-06-14] MEDS: Magnesium Oxide 400 MG TAB PO SCH ×2 (09:00→13:00)
[2019-06-14] MEDS: Clopidogrel Bisulfate 75 MG TAB PO SCH ×2 (09:00→12:59)
--- NOTE | 2019-06-14 09:56 | RAD ---
CHEST 1 VIEW: HISTORY: Upper lobe collapse FINDINGS Persistent right upper lobe atelectasis with some parenchymal changes in the right infrahilar region and some right pleural effusion and some associated right-sided volume loss. Stable increased linear and interstitial markings in the left chest. IMPRESSION: Overall stable chest as above. POS: ASTRID
--- NOTE | 2019-06-14 10:20 | PDOC.PALPN ---
Palliative Progress Note - Subjective Awake, alert. Family at bedside. NPO for possible procedure by aboriginal community council member. C/ O dry mucous membranes. - Objective Vital Signs: Vital Signs - Most Recent Temp Pulse Resp BP Pulse Ox 98.2 F 90 16 143/92 H 95 06/14/19 07:17 06/14/19 08:15 06/14/19 07:17 06/14/19 07:17 06/14/19 07:17 - Physical Exam Constitutional: ill appearing HEENT: EOMI, sclera anicteric Deviation from normal: Dry mucous membranes Deviation from normal: Absent rught upper/mid Shortness of breath with minimal exertion Cardiovascular: RRR Gastrointestinal: continent, non-tender, positive bowel sounds Genitourinary: continent Musculoskeletal: no cyanosis, no clubbing Neurology: moves all 4 limbs Skin: cap refill <2 seconds, no lesions, no rash Deviation from normal: Pallor Psychiatric: A&O x 3, normal mood - Assessment (1) Palliative care encounter Code(s): Z51.5 - ENCOUNTER FOR PALLIATIVE CARE Current Visit: Yes Status: Acute (2) Sepsis Code(s): A41.9 - SEPSIS, UNSPECIFIED ORGANISM Current Visit: Yes Status: Acute (3) Squamous cell carcinoma Code(s): FHK3139 - Current Visit: Yes Status: Acute (4) Constipation Code(s): K59.00 - CONSTIPATION, UNSPECIFIED Current Visit: Yes Status: Acute (5) Decreased oral intake Code(s): R63.8 - OTHER SYMPTOMS AND SIGNS CONCERNING FOOD AND FLUID INTAKE Current Visit: Yes Status: Acute - Plan Plan: *Biotene for dry mucous membranes. *States not constipation today, BM this morning, reinforced that if needed she has medication PRN for constipation *Denies Pain *Weakness, also states weakness for 2-3 days after she receives chemo at home. Offered OT for assistance and teaching with family to help with transfers and safety measures at home. Patient refused today, however will consider referral. *Continue to work with PT/ becomes short of breath with ambulation and minimal exertion. Will follow and assist with Goals of care as needed Thomas Treviño RNdial screw assembler also following patient, please refer to her notes in note section. [40] minutes spent on this encounter with >50% of the time in counseling and coordination of care. - ROS Constitutional: alert, weakness Eyes: other (negative for visual changes) ENT: other (Dry oral membranes) Respiratory: shortness of breath, shortness of breath with extertion Cardiology: other (Negative for chest pain/discomfort or palpitations) Gastrointestinal: other (Negative for constipation, diarrhea, nausea) Genitourinary: other (Negative for frequency, urgency) Musculoskeletal: other (Negative for pain ) Skin: other (Negative for wounds, lesions, skin tears) Psychological: other (Denies depression, anxiety)
[2019-06-14] MEDS ORDERED: Vancomycin 1.5 GRAM/300 ML BAG 1.5 GM in Premix Bag 1 BAG IVPB SCH (11:00)
[2019-06-14] MEDS: Cefepime 2 GM in Sodium Chloride 0.9% 100 ML IVPB SCH (12:19)
--- NOTE | 2019-06-14 12:51 | CON ---
DATE OF CONSULTATION: HISTORY OF PRESENT ILLNESS: A 68-year-old female, well known to me, who has a right upper lung mass, small cell carcinoma following bronchoscopy. She is followed by a local oncologist. She presented to the ER with weakness, decreased appetite, back pain, but no fever, chills, or hemoptysis. No increasing shortness of breath. She is admitted now for several days. We were consulted today regarding the abnormal chest x-ray. PAST MEDICAL HISTORY: Well outlined, pertinent for small cell lung cancer diagnosed in November 2018, hypertension, coronary artery disease. PREVIOUS SURGERIES: Cardiac stent, MediPort, tonsils, COPD. HOME MEDICATIONS: 1. DuoNeb. 2. Advair. 3. Albuterol. 4. Zoloft 100. 5. Metoprolol 50. 6. Plavix 75. ALLERGIES: ERYTHROMYCIN AND PENICILLIN. REVIEW OF SYSTEMS: Otherwise 10-point negative. PHYSICAL EXAMINATION: VITAL SIGNS: Temperature 98, respirations 16, blood pressure 142/92. CHEST: Revealed decreased breath sounds. No wheezing. CARDIAC: Normal S1 and S2. No gallops. ABDOMEN: No masses. LABORATORY DATA: White count 11,000, hemoglobin and hematocrit are 10 and 30, platelet count is normal. Lytes are normal. I reviewed a chest x-ray, which remains pretty much unchanged from previous x-rays, shows stable right upper lung atelectasis. IMPRESSION: 1. Small cell lung cancer; right upper lung atelectasis, stable for a period of time. 2. Chronic obstructive pulmonary disease, coronary artery disease. PLAN: All cultures are negative. At this stage, I do not see any evidence of pneumonia. I do not see any evidence of previously suspected pneumonia. She is at baseline, she might have been slightly dehydrated. She has improved. She is probably ready to be discharged home. She does not need a diagnostic bronchoscopy at this stage. Follow up with her oncologist. Consultation note, 70 minutes, 50% direct patient care. Job ID: [id number]
[2019-06-14] MEDS: BIOTENE MOUTH SPRAY 44.3 ML MM SCH ×4 (13:00→23:43)
--- NOTE | 2019-06-14 16:45 | CON ---
DATE OF CONSULTATION: REASON FOR CONSULT: Extensive small-cell lung cancer. HISTORY OF PRESENT ILLNESS: Ms. Block is a pleasant 68-year-old female who was diagnosed with extensive small-cell carcinoma of the right upper lung in 2018. She completed 6 cycles of carboplatin and REFERENCE DATA EXPERT-16 with immunotherapy of Tecentriq. The carboplatin and REFERENCE DATA EXPERT-16 were completed after 6 cycles in March, and she has been on every 3-week maintenance Tecentriq immunotherapy. Her last PET scan showed stable disease. She received her last treatment of Tecentriq on 06/07, and since that time, she has just been feeling poorly, poor appetite, constipation, and fatigue. She presented to the emergency room on the , and was found to be hypotensive, tachypneic, and tachycardic. Chest x-ray in the emergency room showed right upper lobe collapse, likely consistent from her known right hilar mass. She had a creatinine of 2.39, had a leukocytosis. She was admitted for dehydration and possible sepsis, started on antibiotics. Over the last 2 days, she has been hydrated and her creatinine has returned to baseline. Her white count has trended downward as well. Her appetite has picked up and she has had a bowel movement. Denies any complaints at this time. She did have a repeat chest x-ray over the last several days. There was a concern of tracheal deviation, and Dr. Castellanos was consulted and has seen the patient. PAST MEDICAL HISTORY: 1. Extensive stage small-cell lung cancer. 2. Hypertension. 3. Coronary artery disease. 4. Hyperlipidemia. 5. Asthma. 6. COPD. 7. Anxiety and depression. 8. GERD. 9. Former smoker. PAST SURGICAL HISTORY: 1. Appendectomy. 2. Hysterectomy. 3. Cystocele repair. 4. Coronary artery stent placement. 5. Cataract surgery. 6. Bronchoscopy. 7. MediPort placement. ALLERGIES: PENICILLIN. HOME MEDICATIONS: 1. Alendronate. 2. Atorvavastin. 3. Clopidogrel. 4. Metoprolol. 5. Sertraline. 6. Tylenol. FAMILY HISTORY: Father had lung cancer. SOCIAL HISTORY: , has 3 children. Lives with her spouse. A 30-pack- year history of smoking, quit several years ago. No tobacco or illicit drug use. REVIEW OF SYSTEMS: A 10-point review of systems is negative except for noted in HPI. PHYSICAL EXAMINATION: VITAL SIGNS: Temperature 98.2, pulse is 90, respiratory rate 16, BP is 143/92, and she is 95% on 2 L nasal cannula. GENERAL: This is a well-developed, well-nourished female, in no acute distress. HEENT: Normocephalic and atraumatic. Pupils are equal and reactive to light. NECK: Supple. CV: Regular rate and rhythm. LUNGS: She has wheezing throughout. ABDOMEN: Soft and nontender. Bowel sounds are positive. EXTREMITIES: No clubbing, cyanosis, or edema. SKIN: No rash. HEMATOLOGIC: No petechiae or purpura. NEUROLOGIC: Nonfocal. PERTINENT LABORATORY DATA AND X-RAYS: Current WBCs are 11, hemoglobin 10.2, hematocrit 30.9, platelet count is 169,000. She got 84% neutrophils and 8% lymphocytes. PT is 14.7, INR is 1.2, and PTT is 52.5. Sodium is 138, potassium 3.6, chloride 103, CO2 is 29, BUN is 8, creatinine is 0.49, and calcium is 8.7. Bilirubin is 0.7, AST is 22, ALT is 16, alkaline phosphatase is 103, serum total protein 7.9, albumin 4.1, and globulin 3.8. Urine was negative. Radiology per HPI. ASSESSMENT: 1. Extensive stage small-cell lung cancer, on immunotherapy, last dose 2019. 2. Acute kidney injury, likely secondary to dehydration. 3. Chronic right upper lobe atelectasis with question of possible postobstructive pneumonia. DISCUSSION: All cultures drawn from the ER are negative for any bacteria. She is feeling better with no shortness of breath from her baseline. Dr. Castellanos has seen her, and feels there is no evidence of pneumonia. She will follow up in the clinic with Dr. Borrego as scheduled on 06/27. She is due for a PET scan in June. Thank you for the consult. We will follow along with her hospital course. Job ID: [id number] MTDD
--- NOTE | 2019-06-14 22:35 | PDOC.HOSPP ---
- Subjective Encounter Date: 06/14/19 Encounter Time: 08:00 Subjective: no overnight events. Continues to improve clinically and has no difficulty breathing on room air. has no complaints. - Objective Vital Signs & Weight: Vital Signs (12 hours) Temp Pulse Resp BP Pulse Ox 06/14/19 21:50 92 L 06/14/19 20:00 98.1 F 95 16 149/85 H 94 L Weight Admit Weight 161 lb 8 oz Weight 161 lb 8 oz I&O: 06/13/19 06/14/19 06/15/19 06:59 06:59 06:59 Intake Total 1358 1700 Output Total 400 Balance 958 1700 Result Diagrams: 06/14/19 06:35 06/14/19 06:35 Hospitalist ROS - Review of Systems Constitutional: denies: fever, chills, sweats, weakness, malaise, other Respiratory: denies: cough, dry, shortness of breath, hemoptysis, SOB with excertion, pleuritic pain, sputum, wheezing, other Cardiovascular: denies: chest pain, palpitations, orthopnea, paroxysmal noc. dyspnea, edema, light headedness, other Gastrointestinal: denies: nausea, vomiting, abdominal pain, diarrhea, constipation, melena, hematochezia, other Genitourinary: denies: dysuria, frequency, incontinence, hematuria, retention, other Neurological: denies: weakness, numbness, incoordination, change in speech, confusion, seizures, other - Medication Medications: Active Medications Generic Name Dose Route Start Last Admin Trade Name Freq PRN Reason Stop Dose Admin Albuterol/Ipratropium 3 ml 06/13/19 02:30 06/14/19 21:50 Duoneb NEB 3 ml [id number] PAULA Administration Atorvastatin Calcium 20 mg 06/13/19 09:00 06/14/19 13:01 Lipitor PO 20 mg DAILY PAULA Administration Clopidogrel Bisulfate 75 mg 06/13/19 09:00 06/14/19 12:59 Plavix PO 75 mg DAILY PAULA Administration Sodium Chloride 1,000 mls @ 75 mls/hr 06/13/19 01:48 06/14/19 20:10 Normal Saline 0.9% IV 1,000 mls .[id number] PAULA Administration Magnesium Oxide 400 mg 06/14/19 09:00 06/14/19 13:00 Magnesium Oxide PO 400 mg DAILY PAULA Administration Metoprolol Succinate 50 mg 06/14/19 09:00 06/14/19 09:02 Toprol Xl PO 50 mg DAILY PAULA Administration Miscellaneous Medication 0 ml 06/14/19 13:00 06/14/19 20:10 Biotene Moisturizing Mouth MM 1 spray Q4HR PAULA Administration Sertraline HCl 100 mg 06/13/19 09:00 06/14/19 09:02 Zoloft PO 100 mg DAILY PAULA Administration - Exam General Appearance: NAD, awake alert Heart: RRR, no murmur, no gallops, no rubs, normal peripheral pulses Respiratory: no wheezes, no rales, no ronchi, normal chest expansion, no tachypnea, normal percussion Respiratory - other findings: left: CTA right: no lung sounds upper and midfields. lower field normal mela Extremities: no edema Neurological: cranial nerve grossly intact Psychiatric: normal affect, normal behavior, A&O x 3 Hosp A/P (1) Decreased oral intake Code(s): R63.8 - OTHER SYMPTOMS AND SIGNS CONCERNING FOOD AND FLUID INTAKE Status: Acute (2) Constipation Code(s): K59.00 - CONSTIPATION, UNSPECIFIED Status: Acute (3) Acute renal failure Status: Acute - Plan -unlikely infectious etiology based on presentation and infectious workup; likely result of mass effect of tumor; pulmonology and oncology recs appreciated -per pulmonology, CXR RUL atelectasis stable; no indication for intervention, oncology in agreement and will follow patient in clinic Plan: -stop ABx -likely DC 06/15
[2019-06-15] MEDS: BIOTENE MOUTH SPRAY 44.3 ML MM SCH ×5 (04:42→20:57)
[2019-06-15 06:02] LABS: Anion Gap 11 mmol/L (10-20); BUN (Urea Nitrogen) 7 mg/dL (9.8-20.1); Calc. Creatinine Clearance 128 mL/min (70-130); Calcium 8.7 mg/dL (7.8-10.44); Carbon Dioxide 29 mmol/L (23-31); Chloride 101 mmol/L (98-107); Estimated GFR-MDRD Greater than 90; Glucose 96 mg/dL (80-115); Magnesium 1.5 mg/dL (1.6-2.6); Potassium 3.4 mmol/L (3.5-5.1); Sodium 138 mmol/L (136-145)
[2019-06-15] MEDS: Clopidogrel Bisulfate 75 MG TAB PO SCH (08:48)
[2019-06-15] MEDS: Atorvastatin Calcium 20 MG TAB PO SCH (08:48)
[2019-06-15] MEDS: Magnesium Oxide 400 MG TAB PO SCH (08:48)
[2019-06-15] MEDS: Sodium Chloride 0.9% 1,000 ML IV SCH (09:43)
--- NOTE | 2019-06-15 10:52 | PRG ---
DATE OF SERVICE: 06/15/2019 SUBJECTIVE: This morning, she is better, less shortness of breath, less cough. OBJECTIVE: VITAL SIGNS: Temperature 98, pulse 88, respirations 20, saturations are 92% on 2 L. Apparently, she desatted when she walked as per the information that I get. Saturations are apparently 88% on 1.5 and says she was short of breath. She therefore would qualify for low-flow O2. CHEST: Decreased breath sounds. No wheezing. CARDIAC: Normal S1 and S2. No gallops. ABDOMEN: No masses. ASSESSMENT: Right upper lung mass, atelectasis, small-cell cancer. PLAN: Pulmonary marin, she can be discharged home on present medication. Low-flow O2 being prescribed. Neb treatments prescribed. Follow up with Oncology. Job ID: [id number]
[2019-06-15] MEDS ORDERED: Ondansetron PF 4 MG/2 ML Vial IVP SCH (13:00)
[2019-06-15] MEDS ORDERED: Potassium Chloride 20 MEQ TAB PO SCH (13:11)
[2019-06-15] MEDS ORDERED: Amlodipine 10 MG TAB PO SCH (13:15)
[2019-06-15] MEDS ORDERED: Labetalol HCl 100 MG/20 ML VIAL SLOW IVP SCH (13:15)
[2019-06-15] MEDS ORDERED: Acetaminophen 325 MG TAB PO PRN (17:27)
[2019-06-15] MEDS ORDERED: Ondansetron ODT 4 MG TAB PO PRN (17:28)
--- NOTE | 2019-06-15 22:29 | PDOC.HOSPP ---
- Subjective Encounter Date: 06/15/19 Encounter Time: 13:00 Subjective: no overnight events. Later in the morning, significantly elevated blood pressure , nausea, and short of breath at rest. Will require better control of blood pressure and symptoms prior to discharge. - Objective Vital Signs & Weight: Vital Signs (12 hours) Temp Pulse Resp BP BP Pulse Ox 06/15/19 21:56 91 16 91 L 06/15/19 20:00 90 L 06/15/19 19:54 98.6 F 93 16 131/63 89 L 06/15/19 18:55 88 16 92 L 06/15/19 15:21 92 18 154/77 H 06/15/19 15:12 92 20 90 L 06/15/19 13:50 83 18 178/79 H 06/15/19 13:22 86 168/73 H 06/15/19 13:15 90 173/82 H 06/15/19 13:14 90 173/82 H 06/15/19 12:50 90 20 91 L 06/15/19 12:30 92 18 196/95 H 06/15/19 10:45 88 L Weight Admit Weight 161 lb 8 oz Weight 161 lb 8 oz I&O: 06/14/19 06/15/19 06/16/19 06:59 06:59 06:59 Intake Total 1700 962 Balance 1700 962 Result Diagrams: 06/14/19 06:35 06/15/19 05:24 Hospitalist ROS - Review of Systems Constitutional: denies: fever, chills, sweats, weakness, malaise, other Respiratory: reports: shortness of breath, SOB with excertion. denies: cough, dry, hemoptysis, pleuritic pain, sputum, wheezing, other Cardiovascular: denies: chest pain, palpitations, orthopnea, paroxysmal noc. dyspnea, edema, light headedness, other Gastrointestinal: reports: nausea. denies: vomiting, abdominal pain, diarrhea, constipation Genitourinary: denies: dysuria, frequency, incontinence, hematuria Neurological: reports: weakness. denies: numbness, incoordination, change in speech, confusion - Medication Medications: Active Medications Generic Name Dose Route Start Last Admin Trade Name Freq PRN Reason Stop Dose Admin Acetaminophen 650 mg 06/15/19 17:27 06/15/19 18:01 Tylenol PO 650 mg Q6H PRN Administration Headache Albuterol/Ipratropium 3 ml 06/13/19 02:30 06/15/19 21:56 Duoneb NEB 3 ml [id number] PAULA Administration Atorvastatin Calcium 20 mg 06/13/19 09:00 06/15/19 08:48 Lipitor PO 20 mg DAILY PAULA Administration Clopidogrel Bisulfate 75 mg 06/13/19 09:00 06/15/19 08:48 Plavix PO 75 mg DAILY PAULA Administration Magnesium Oxide 400 mg 06/14/19 09:00 06/15/19 08:48 Magnesium Oxide PO 400 mg DAILY PAULA Administration Metoprolol Succinate 50 mg 06/14/19 09:00 06/15/19 08:48 Toprol Xl PO 50 mg DAILY PAULA Administration Miscellaneous Medication 0 ml 06/14/19 13:00 06/15/19 20:57 Biotene Moisturizing Mouth MM Not Given Q4HR PAULA Ondansetron HCl 4 mg 06/15/19 17:28 06/15/19 18:52 Zofran Odt PO 4 mg Q6H PRN Administration Nausea/Vomiting Sertraline HCl 100 mg 06/13/19 09:00 06/15/19 08:49 Zoloft PO 100 mg DAILY [facility] Administration Sodium Chloride 10 ml 06/15/19 21:00 06/15/19 20:58 Flush - Normal Saline IVF Not Given Q12HR PAULA - Exam General Appearance: awake alert, ill appearing General - other findings: mild distress Eye: PERRL ENT: normocephalic atraumatic Neck: no JVD Heart: no murmur, no gallops Heart - other findings: regular rhythm, tachycardic Respiratory - other findings: left: CTA; right: minimal upper and midfield lung sounds, lower field rhonc Gastrointestinal: soft, non-tender, non-distended, normal bowel sounds Extremities: no edema Psychiatric: normal affect, normal behavior, A&O x 3 Hosp A/P (1) Hypertensive urgency Code(s): I16.0 - HYPERTENSIVE URGENCY Status: Acute (2) Decreased oral intake Code(s): R63.8 - OTHER SYMPTOMS AND SIGNS CONCERNING FOOD AND FLUID INTAKE Status: Acute (3) Acute renal failure Status: Acute - Plan -CXR during this admission showing right upper lobe collapse and stable; however , when compared to 05/10/2019 CXR, significant interval change since right upper lobe was aerated; appreciated oncology and pulmonology recs: evaluated and no indication for intervention at this stage -hypertensive urgency, will add amlodipine and PRN labetolol for better control -late in morning, short of breath, nausea -later in evening, somewhat improved but hasn't resolved despite lower blood pressure -will observe for additional night meanwhile arrange for home o2
[2019-06-16] MEDS: BIOTENE MOUTH SPRAY 44.3 ML MM SCH ×3 (00:26→08:47)
[2019-06-16 06:26] LABS: Magnesium 1.6 mg/dL (1.6-2.6); Potassium 4.3 mmol/L (3.5-5.1)
[2019-06-16 08:22] VITALS: BP 109/56; TEMP 98.4
[2019-06-16] MEDS: Atorvastatin Calcium 20 MG TAB PO SCH (08:46)
[2019-06-16] MEDS: Clopidogrel Bisulfate 75 MG TAB PO SCH (08:47)
[2019-06-16] MEDS: Magnesium Oxide 400 MG TAB PO SCH (08:47)
[2019-06-16] MEDS ORDERED: Amlodipine 10 MG TAB PO SCH (09:00)
--- NOTE | 2019-06-17 09:56 | PQF ---
LILY SHANE ADI [id number] CLINICAL DOCUMENTATION CLARIFICATION FORM: POST DISCHARGE Addendum to original discharge summary date: ____ Late entry note date: __ DATE:06/17/2019 ATTN:JASWINDER REAGAN Please exercise your independent, professional judgment in responding to the clarification form. Clinical indicators are provided on the bottom of this form for your review Please check appropriate box(s) to clarify if the following diagnosis has been ruled in or ruled out: Postobstructive pneumonia [ ] Ruled in diagnosis [ ] Continue to treat [ ] Resolved [ x ] Ruled out diagnosis [ ] Cannot rule out diagnosis [ ] Other diagnosis [ ] Unable to determine For continuity of documentation, please document condition throughout progress notes and discharge summary. Thank You. CLINICAL INDICATORS - SIGNS / SYMPTOMS / LABS Endorses dry cough-Documented in H&P on 06/12 by Jaswinder Reagan Recurrent postobstructive pneumonia-Documented in H&P on 06/12 by Jaswinder Reagan WBC-20.2-Documented in H&P on 06/12 by Jaswinder Reagan Cxr shows collapsed RUL due to mass effect; Breathing and saturating well on 2 l NC-Documented in H&P on 06/12 by Jaswinder Reagan Most likely etiology at this point postobstructive pneumonia considering,Cxr findings and recent pneumonia-Documented in H&P on 06/12 by Jaswinder Reagan Cxr during this admission showing right upper lobe collapse and stable; however when compared to 05/10/2019 CXR RISK FACTORS Cxr shows collapsed RUL due to mass effect-Documented in H&P on 06/12 by Jaswinder Reagan TREATMENTS Continue Vanc, cef, IVF-Documented in H&P on 06/12 by Shemesh, Jaswinder SAP Direct Support Professional [facility] [employer] Winform Viewer (This form is maintained as a part of the permanent medical record) 2014 [email or web address] All Rights Reserved [email or web address]
--- NOTE | 2019-06-17 13:59 | DIS ---
DATE OF ADMISSION: 06/12/2019 DATE OF DISCHARGE: 06/16/2019 HOSPITAL COURSE: Ms. Block is a 68-year-old female with a medical history of lung cancer, who presented for reduced oral intake for a week. She was diagnosed with preliminary right upper lobe postobstructive collapse and ANGELIKA. During her inpatient stay, both of the Oncology and Pulmonary Team were consulted. Even though, there was a change in chest x-ray and collapse of the right upper lobe compared to April, her x-ray had been persistent through her current inpatient stay and was deemed not necessary to intervene. Oncology was on-board with Pulmonary and agreed to their recommendations. The patient's nausea and vomiting improved through her inpatient stay. She was supplemented with fluids and her ANGELIKA has resolved as well. The patient and the family were educated regarding the most likely reasons for her reduced oral intake being poorly controlled hypertension, progression of her lung cancer, and collapse of her right upper lobe. The patient was evaluated for oxygen and was discharged on home oxygen. Prior to discharge, it was confirmed that the oxygen arrived to the patient's residence. She was discharged hemodynamically stable with nausea improving and with no other complaints. PHYSICAL EXAMINATION: VITAL SIGNS: Unremarkable on exam. GENERAL APPEARANCE: No apparent distress. Awake and alert. Chronically ill-appearing. EYES: Show anicteric sclerae. HEAD AND ENT: Normocephalic, atraumatic. No nuchal rigidity. Babinski was negative. NECK: Supple. Symmetric. No JVD. HEART: No murmurs. No gallops. No rubs. Normal peripheral pulses. Regular rhythm and rate. Left MediPort appears noninfected. RESPIRATORY: No audible sounds in the right upper and mid cain. Left lung sounds were unremarkable. GASTROINTESTINAL: Soft, nondistended. Normal bowel sounds. EXTREMITIES: No edema. NEUROLOGICAL: Cranial nerves grossly intact. No focal deficits. PSYCHIATRIC: Normal affect. Normal behavior. Oriented to person, oriented to place, but not to time. ASSESSMENT AND PLAN: Ms. Block is a 68-year-old female, who presented with reduced oral intake due to preliminary right upper lobe collapse, progression of her lung cancer, which resulted in acute kidney injury. 1. Reduced oral intake: a. The patient significantly improved during her inpatient stay and prior to discharge, appetite somewhat improved. The patient and the family were educated regarding their expectation regarding the patient's appetite considering her active oncologic burden. They were also educated regarding other possibilities that could provoke general feelings of malaise as well as reduced oral intake. Infectious workup was negative. b. The patient was discharged on 2 L of nasal cannula and antiemetic medication. In addition to that the patient had a bowel movement during her inpatient stay, and constipation was ruled out as a possible cause of her nausea and reduced oral intake. 2. Right upper lobe collapse: a. Likely due to progression of the patient's lung cancer, Pulmonology was consulted and deemed chest x-ray to be stable during inpatient stay and that there was no indication for invasive intervention. Oncology was on-board with Pulmonology recommendations. 3. Acute kidney injury: a. Likely prerenal due to reduced p.o. intake. b. Resolved after IV fluid supplementation. Job ID: [id number]
[2019-06-19] MEDS ORDERED: Alendronate Sodium 70 mg Tablet PO SCH (09:00)
--- NOTE | 2019-06-23 09:00 | PQF ---
GUILLERMOLILY NASSAR JASWINDER FERNÁNDEZ [id number] CLINICAL DOCUMENTATION CLARIFICATION FORM: POST DISCHARGE Addendum to original discharge summary date: ____ Late entry note date: __ DATE:06/23/2019 ATTN: JASWINDER REAGAN Please exercise your independent, professional judgment in responding to the clarification form. Clinical indicators are provided on the bottom of this form for your review Please check appropriate box(s) to clarify if the following diagnosis has been ruled in or ruled out: Sepsis [ ] Ruled in diagnosis [ ] Continue to treat [ ] Resolved [ x ] Ruled out diagnosis [ ] Cannot rule out diagnosis [ ] Other diagnosis [ ] Unable to determine For continuity of documentation, please document condition throughout progress notes and discharge summary. Thank You. CLINICAL INDICATORS - SIGNS / SYMPTOMS / LABS Sepsis alert @ 1003-Documented in ED on 06/12 by Karine Taylor SIRS scoring:Productive cough/PNA, Yes, Patient did meet at least 1 criteria for Step A., Heart rate > 90, A sepsis alert was activated due to patient meeting the activation requirement in step A and Step B-Documented in ED on by Karine Taylor Pulse-138, [id number] in ED on 06/12 by Karine Taylor WBC-20.2-Documented in H&P on 06/12 by Jaswinder Reagan MD Sepsis associated hypotension-Documented in H&P on 06/12 by Jaswinder Reagan MD Pneumonia-Documented in H&P on 06/12 by Jaswinder Reagan MD ANGELIKA-Documented in H&P on 06/12 by Jaswinder Reagan MD RISK FACTORS Pneumonia-Documented in H&P on 06/12 by Jaswinder Reagan MD TREATMENTS Continue vancomycin, cefepime, IVF-Documented in H&P on 06/12 by Jaswinder Reagan MD [employer] (This form is maintained as a part of the permanent medical record) 2014 [employer]. All Rights Reserved [email or web address] [phone] [email or web address]
== END 2019-06-16 12:50 | disposition home or self-care (01) | DRG 683 ==
LOC: ERS 09:55 → ONC 14:11
PROVIDERS: ADMIT Internal Medicine; ATTEND Internal Medicine
DX: N17.9 Acute kidney failure, unspecified (principal); C34.91 Malignant neoplasm of unspecified part of right bronchus or lung; J44.0 Chronic obstructive pulmonary disease with (acute) lower respiratory infection; J98.11 Atelectasis; K59.00 Constipation, unspecified; I25.10 Atherosclerotic heart disease of native coronary artery without angina pectoris; I10 Essential (primary) hypertension; Z87.891 Personal history of nicotine dependence; Z51.5 Encounter for palliative care; E78.5 Hyperlipidemia, unspecified; K21.9 Gastro-esophageal reflux disease without esophagitis; F41.9 Anxiety disorder, unspecified; Z90.49 Acquired absence of other specified parts of digestive tract; Z90.710 Acquired absence of both cervix and uterus; Z95.5 Presence of coronary angioplasty implant and graft; Z98.49 Cataract extraction status, unspecified eye; Z88.0 Allergy status to penicillin; Z80.1 Family history of malignant neoplasm of trachea, bronchus and lung; I16.0 Hypertensive urgency
CPT/HCPCS: 36415; 51701; 71045; 80048; 80053; 80202; 81003; 81015; 82550; 82553; 83605; 83690; 83735; 83880; 84132; 84484; 85025; 85610; 85730; 87040; 87070; 87205; 87633; 87804; 90471; 90670; 93005; 94640; 94760; 96361; 96365; 96375; A4353; G0009; J0692; J1100; J2405; J3370; J3490; J7620; Q0162

== ENCOUNTER 2019-06-30 10:23 | Outpatient (CLI) | payer MEDICARE, OTHER ==
--- NOTE | 2019-06-30 13:55 | PET ---
Radionucleotide PET scan with CT attenuation correction HISTORY: Malignant neoplasm of lung right upper lobe right bronchus. Restaging. Rib lesion. COMPARISON: 02/24/2019 and 12/02/2018. FINDINGS: Physiologic uptake of radiotracer throughout the enteric system and alignment urinary tract . Uptake around the teeth consistent with dental disease. There is now more prominent narrowing of the right mainstem bronchus. Surrounding activity has become more confluent, max SUV 3.7 (previously 3.8). Also developed over the interval is collapse of the right upper lobe and development of a small amount right pleural fluid with mild compressive atelecta sis at the right lung base. The focal hypermetabolic lesion previously detailed in the superior segment right lower lobe is not well delineated on today's exam. The sclerotic lesion at the anterior aspect of the left seventh rib now shows maximum SUV 2.8 (previo usly 3.0). A focus of activity at the lateral aspect of the right sixth rib maximal SUV 2.9 is associated with a nonpathologic healing fracture. Sagittal images best demonstrate interval partial compression of the T9 vertebral body with increased activity maximum SUV 6.7. There is also new prominent compression deformity of the T11 vertebral body maximum SUV 4.4. Nondiagnostic CT attenuation correction images also show cortical remodeling of the coracoid process of the left scapula with the appearance of an old injury. There is calcification throughout the arterial structures including the coronary arteries. Significant stenosis involving the lower abdomin al aorta. 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 Diverticula arise from the colon without adjacent inflammation. IMPRESSION: While metabolic activity associated with the right hilum/lung abnormality has not increas ed, structural abnormality has worsened, with obstruction of the right upper lobe bronchus, narrowing the right mainstem bronchus, and obstructive atelectasis of the right upper lobe. Now small amount right pleural fluid. Stable activity associated with the left seventh rib. Activity associated with new T9 and T12 partial vertebral compression injuries. Given that lytic mass was not present on most recent CT scans, this is likely NOT related to metastatic disease. Benign-appearing healing right lateral sixth rib fracture. Prominent atherosclerosis with distal aortic stenosis. Diverticulosis. No evidence of diverticulitis.
== END 2019-06-30 10:24 | disposition home or self-care (01) ==
LOC: PET 10:23
PROVIDERS: ATTEND Internal Medicine Hematology & Oncology
DX: C34.11 Malignant neoplasm of upper lobe, right bronchus or lung (principal); J98.11 Atelectasis; S22.31XD Fracture of one rib, right side, subsequent encounter for fracture with routine healing; I70.90 Unspecified atherosclerosis; K57.90 Diverticulosis of intestine, part unspecified, without perforation or abscess without bleeding
CPT/HCPCS: 78815; A9552

== ENCOUNTER 2019-07-20 09:39 | Outpatient (CLI) | payer MEDICARE, OTHER ==
--- NOTE | 2019-07-20 11:58 | MRI ---
MRI BRAIN WITH AND WITHOUT IV CONTRAST: Date: 07/20/2019 HISTORY: Lung cancer. Exam requested to evaluate for brain metastasis. COMPARISON: 12/22/2018. FINDINGS: No restricted diffusion is seen. No evidence of infarct, hemorrhage, mass, midline shift, or abnormal extra-axial fluid collections noted. Ventricular size is appropriate and the basilar cisterns are pa tent. No abnormal postcontrast enhancement is seen. Multiple foci of T2 prolongation consistent with chronic small vessel ischemic disease again noted. The T1 marrow signal intensity in the calvarium is within normal limits. The visualized paranasal sinuses and mastoid air cells are well aerated. IMPRESSION: No evidence of intracranial metastases. POS: [facility]
[2019-07-20] MEDS ORDERED: Magnevist 469MG/ML 20 ML VIAL ONE (13:59)
== END 2019-07-20 09:40 | disposition home or self-care (01) ==
LOC: MRI 09:39
PROVIDERS: ATTEND Radiology Radiation Oncology
DX: C34.11 Malignant neoplasm of upper lobe, right bronchus or lung (principal)
CPT/HCPCS: 70553; A9579

== ENCOUNTER 2019-07-26 05:55 | Inpatient (IN) | payer MEDICARE, OTHER ==
[2019-07-26] MEDS ORDERED: Succinylcholine Chloride 20 MG/ML 10 ml SYRINGE FS ONE (06:04)
[2019-07-26] MEDS ORDERED: Propofol 1,000 MG/100 ML VIAL IV ONE (06:27)
[2019-07-26] MEDS ORDERED: Aztreonam 1 GM in Sodium Chloride 0.9% 100 ML IVPB SCH (06:45)
[2019-07-26 06:47] LABS: #Eosinphils 0.1 thou/uL (0.0-0.7); #Lymphocytes 2.6 thou/uL (1.20-3.40); #Monocytes 1.1 thou/uL (0.11-0.59); #Neutrophils 7.4 thou/uL (1.40-6.50); %Basophils 0.3 % (0.0-1.0); %Eosinophils 1.3 % (0.0-10.0); %Lymphocytes 23.1 % (21.0-51.0); %Monocytes 9.9 % (0.0-10.0); %Neutrophils 65.4 % (42.0-75.0); Hemoglobin 11.6 g/dL (12.0-16.0); Mean Corpuscular HGB CONC 32.6 g/dL (32.0-36.0); Mean Corpuscular Hemoglobin 26.2 pg (27.0-31.0); Mean Corpuscular Volume 80.3 fL (78.0-98.0); Mean Platelet Volume 7.1 fL (7.4-10.4); Platelet Count 321 thou/uL (130-400); RBC Distribution Width 14.9 % (11.5-14.5); Red Blood Cell (RBC) Count 4.45 mill/uL (4.20-5.40); White Blood Cell (WBC) Count 11.3 thou/uL (4.8-10.8)
[2019-07-26 06:59] LABS: Actual Bicarbonate (HCO3a) 22.2 mEq/L (22-28); Analyzer IN Cardio ER; Base Excess (BEa) -3.5 mEq/L (-2.0 to +3.0); CO2 Tension 42.6 mmHg (35.0-45.0); Calcium, Ionized 1.16 mmol/L (1.12-1.30); Carboxyhemoglobin (COHb) 0.3 gm% (0.0-3.0); Hemoglobin (Hb) 9.7 g/dL (12.0-16.0); O2 Tension (PaO2) 326.7 mmHg (> 80.0); Potassium - ABG Lab 3.09 mmol/L (3.70-5.30); pH, Arterial 7.34 (7.35-7.45)
[2019-07-26 07:00] LABS: Puncture Site LFA
[2019-07-26 07:11] LABS: ALT (SGPT) 12 U/L (8-55); AST (SGOT) 29 U/L (5-34); Albumin 3.9 g/dL (3.4-4.8); Alkaline Phosphatase 55 U/L (40-110); Anion Gap 21 mmol/L (10-20); BUN (Urea Nitrogen) 20 mg/dL (9.8-20.1); Bilirubin, Total 0.5 mg/dL (0.2-1.2); Calc. Creatinine Clearance 0 mL/min (70-130); Calcium 10.2 mg/dL (7.8-10.44); Carbon Dioxide 22 mmol/L (23-31); Chloride 96 mmol/L (98-107); Estimated GFR-MDRD 64; Globulin 3.9 g/dL (2.4-3.5); Glucose 123 mg/dL (80-115); Potassium 3.9 mmol/L (3.5-5.1); Protein, Total 7.8 g/dL (6.0-8.3); Sodium 135 mmol/L (136-145)
[2019-07-26] MEDS ORDERED: Fentanyl 100 MCG/2 ML VIAL ONE (07:11)
[2019-07-26] MEDS ORDERED: Fentanyl 20 mcg/ml (100 ml CADD) IV PRN (07:16)
[2019-07-26] MEDS ORDERED: Vancomycin 1 GM/200 ML BAG ONE (07:25)
--- NOTE | 2019-07-26 07:45 | CT ---
EXAM: CT pulmonary angiogram with IV contrast and three-dimensional reconstructions PROVIDED CLINICAL HISTORY: Shortness of breath COMPARISON: PET/CT 06/30/2019 FINDINGS: There is no evidence for central or segmental pulmonary embolus. There is complete atelectasis of the right upper lobe redemonstrated. Interval near complete atelectasis of the right middle lobe. Multifocal opacification of right lower lobe bronchi with associated peripheral consolidation. Patchy areas of groundglass opacity are seen in a central/perihilar distribution involving left greater than right lungs. There is a small amount of right pleural fluid. No significant left pleural fluid. No evidence for pneumothorax. Endotracheal tube is noted, the tip of which terminates just proximal to the saige. Enteric catheter is noted, tip of which terminates in the region of the gastric fundus . The visualized portions of the upper abdomen appear unremarkable. Compression deformities involving T12 and T9 are demonstrated, which could be pathologic. IMPRESSION: 1. No evidence for central or segmental pulmonary embolus. 2. Persistent complete atelectasis of the right upper lobe. Interval near-total atelectasis of the ri ght middle lobe. 3. Fluid density/opacification of multifocal right lower lobe bronchi compatible with aspiration. Par enchymal opacities involving each lower lobe may reflect infectious or inflammatory pneumonitis. 4. Other findings as above.
--- NOTE | 2019-07-26 07:57 | RAD ---
PORTABLE CHEST 1 VIEW: DATE: 07/26/2019. TIME: 6:29 AM. HISTORY: Respiratory failure. COMPARISON: 06/14/2019. FINDINGS/IMPRESSION: Interval placement of an endotracheal tube is seen with tip about 2 cm above the level of the saige. Left-sided Port-A-Cath remains in place. Atelectatic change in the right upper lobe is again noted . There is pulmonary vascular congestion with mild infiltrates. No pneumothoraces or large effusion s are seen. POS: [facility]
[2019-07-26 07:58] LABS: Bacteria/HPF None Seen HPF (None Seen); Bilirubin Negative (Negative); Blood, Urine 2+ (Negative); Glucose, Urine (Dipstick) Normal (Negative); Leukocyte 25 Leu/uL (Negative); Nitrite Negative (Negative); Protein, Urine (Dipstick) 70 mg/dL (Neg-Trace); Squamous Epithelial 0-3 HPF (0-3); Urobilinogen 3 mg/dL (Less than 2)
[2019-07-26 08:00] LABS: Clarity Hazy (Clear)
[2019-07-26 08:04] LABS: RBC/HPF 0-3 HPF (0-3)
[2019-07-26 08:05] LABS: Mucous/LPF 2+ LPF (<2+); WBC/HPF 0-3 HPF (0-3)
[2019-07-26 08:07] LABS: Calcium Oxalate Crystals 2+ HPF (None Seen)
[2019-07-26] MEDS ORDERED: Norepinephrine 8 MG/0.9% NS 250 ML IVPB SCH (08:15)
[2019-07-26] MEDS ORDERED: Ventilator Sedation Protocol 1 EACH FS SCH (08:57)
[2019-07-26] MEDS ORDERED: Acetaminophen 650 MG Suppository ONE (08:57)
[2019-07-26] MEDS ORDERED: Norepinephrine 8 MG/0.9% NS 250 ML IVPB PRN (08:57)
[2019-07-26] MEDS ORDERED: CCU Electrolyte Replacement 1 EACH IVPB ONE (08:57)
[2019-07-26] MEDS ORDERED: VANCOMYCIN IVPB PRN (09:00)
--- NOTE | 2019-07-26 09:11 | PDOC.HHP ---
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 Shortness of breath started yesterday per family members but improved overnight. This morning, patient was assisted to the bathroom, and upon trying to rise from the seat got short of breath again and couldn't rise, so was brought to the ED. on encounter, patient is sedated and intubated. Per family members, patient was never unresponsive but rather drowsy. patient also endorsed to family members fatigue but denied fever, chills, night sweats, sputum production, chest pain, pleuritic pain, palpitations, abdominal pain, diarrhea, constipation, hematochezia, melena, focal weakness ED Course: In the ED, patient was found to be hypoxic with blue lips, febrile, and unresponsive so was intubated. after propofol administration, blood pressure decreased so was started on levophed as well. She was admitted to the ICU. Hospitalist ROS - Review of Systems ROS unobtainable: due to endotracheal tube All other systems reviewed; all pertinent +/- noted in HPI/Subj (per patient's family members (discussed over the phone)) Hospitalist History - Past Medical History Source: family, old records (Past Medical History Cardiac: reports: CAD, HTN Pulmonary: reports: Other (squamous cell carcinoma of right lung; patient and family previously denied ever being diagnosed with COPD or asthma). Rheumatologic: reports: no pertinent history Infectious Disease: reports: Other (pneumonia a few weeks ago) ENT: reports: no pertinent history Endocrine: reports: no pertinent history - Past Surgical History Past Surgical History: reports: Appendectomy, Hysterectomy Other Surgical History: lung biopsy, mediport placement - Family History Family History: reports: cardiac disorder, hypertension - Social History Smoking Status: Former smoker Tobacco Type: cigarettes Alcohol: reports: Occassional Drugs: reports: none Living Situation: With Family) Rheumatologic: reports: no pertinent history Endocrine: reports: no pertinent history - Past Surgical History Past Surgical History: reports: Appendectomy, Hysterectomy - Social History Alcohol: reports: Occassional Drugs: reports: none - Exam General - other findings: intubated and sedated Eye: PERRL, anicteric sclera Neck: no JVD Neck - other findings: mediport appears not infected Heart: RRR, no murmur, no gallops, no rubs Respiratory: no wheezes, no rales Respiratory - other findings: upper right field no lung sounds; otherwise diffuse rhonchi Gastrointestinal: soft Extremities: no edema Extremities - other findings: right femoral central line in place Psychiatric - other findings: sedated Hospitalist Results - Labs Result Diagrams: 07/26/19 06:27 07/26/19 06:27 Lab results: WBC 11.3 thou/uL (4.8-10.8) H 07/26/19 06:27 Hgb 11.6 g/dL (12.0-16.0) L 07/26/19 06:27 Hct 35.8 % (36.0-47.0) L 07/26/19 06:27 MCV 80.3 fL (78.0-98.0) 07/26/19 06:27 Plt Count 321 thou/uL (130-400) 07/26/19 06:27 Neutrophils % 65.4 % (42.0-75.0) 07/26/19 06:27 ABG pH 7.34 (7.35-7.45) L 07/26/19 06:54 ABG pCO2 42.6 mmHg (35.0-45.0) 07/26/19 06:54 ABG pO2 326.7 mmHg (> 80.0) H 07/26/19 06:54 Sodium 135 mmol/L (136-145) L 07/26/19 06:27 Potassium 3.9 mmol/L (3.5-5.1) 07/26/19 06:27 Chloride 96 mmol/L (98-107) L 07/26/19 06:27 Carbon Dioxide 22 mmol/L (23-31) L 07/26/19 06:27 BUN 20 mg/dL (9.8-20.1) 07/26/19 06:27 Creatinine 0.88 mg/dL (0.6-1.1) 07/26/19 06:27 Glucose 123 mg/dL (80-115) H 07/26/19 06:27 Lactic Acid 5.0 mmol/L (0.5-2.2) H* 07/26/19 06:27 Calcium 10.2 mg/dL (7.8-10.44) 07/26/19 06:27 Total Bilirubin 0.5 mg/dL (0.2-1.2) 07/26/19 06:27 AST 29 U/L (5-34) 07/26/19 06:27 ALT 12 U/L (8-55) 07/26/19 06:27 Alkaline Phosphatase 55 U/L (40-110) 07/26/19 06:27 Serum Total Protein 7.8 g/dL (6.0-8.3) 07/26/19 06:27 Albumin 3.9 g/dL (3.4-4.8) 07/26/19 06:27 Urine Ketones 20 mg/dL (Negative) A 07/26/19 07:30 Urine Blood 2+ (Negative) A 07/26/19 07:30 Urine Nitrite Negative (Negative) 07/26/19 07:30 Ur Leukocyte Esterase 25 Chandra/uL (Negative) 07/26/19 07:30 Urine RBC 0-3 HPF (0-3) 07/26/19 07:30 Urine WBC 0-3 HPF (0-3) 07/26/19 07:30 Ur Squamous Epith Cells 0-3 HPF (0-3) 07/26/19 07:30 Urine Bacteria None Seen HPF (None Seen) 07/26/19 07:30 - EKG Interpretation EKG: normal sinus rhtyhm with no signs of new ischemia - Radiology Interpretation CT scan - chest Status: image reviewed by me (Left: some ground glass opacities right: collapsed upper lobe, consolidation in lower lobe) Hospitalist H&P A/P - Problem (1) Aspiration pneumonia Code(s): J69.0 - PNEUMONITIS DUE TO INHALATION OF FOOD AND VOMIT Status: Acute (2) Suspected COVID-19 virus infection Code(s): R68.89 - OTHER GENERAL SYMPTOMS AND SIGNS Status: Acute (3) Small cell carcinoma of right lung Code(s): C34.91 - MALIGNANT NEOPLASM OF UNSP PART OF RIGHT BRONCHUS OR LUNG Status: Acute (4) History of coronary artery stent placement Code(s): Z95.5 - PRESENCE OF CORONARY ANGIOPLASTY IMPLANT AND GRAFT Status: Acute (5) Sepsis Code(s): A41.9 - SEPSIS, UNSPECIFIED ORGANISM Status: Acute - Plan Plan: #septic shock #aspiration pneumonia #covid r/u -qSOFA 0/3 on presentation -anion gap lactic acidosis -required intubation due to hypoxic resp failure and unresponsiveness per ED -BP decreased after starting propofol, central line placed, levophed started -febrile, elevated neutrophil, CT showing RLL cosolidation (as well as stable RUL collapse, which occurred between 04/2019 to 05/2019 -UA negative -COVID r/o sent out; low risk considering more likely etiology and HPI Plan: -start vanc, zosyn, levo (penicillin allergy confirmed to happen only once, years ago, rash; was recently on cefepime and vanc with no allergic reaction) -maintenance IVF NS wit D5w -viral panel, covid sent for r/u by ED -respiratory, blood cultures -vent management as per ICU #Right lung small cell lung carcinoma -last chemo 03/2019, last Atezolizumab 05/2019; started radiation therapy last week -CXR (05/2019) RUL collapse compared to 04/2019 #CAD s/p stent placement -EKG showing no signs of acute ischemia -restarted plavix Disposition/PPx Surrogate: Sumit [phone], requested that patient remains full code -DVT PPx: enoxeparin -GI PPx: no Ix ELOS: at least 3 midnights Caring for patient required 45 minutes.
[2019-07-26] MEDS ORDERED: PROVENTIL INHALER 6.7 G (200 INHALATIONS) INH SCH (09:15)
[2019-07-26] MEDS ORDERED: Propofol BOLUS 1,000 MG/100 ML VIAL IV PRN (09:18)
[2019-07-26] MEDS ORDERED: Fentanyl BOLUS 250 ML IVPB PRN (09:18)
[2019-07-26] MEDS ORDERED: DISCONTINUE PREVIOUS NARCOTIC PAIN MEDICATIONS AND BENZODIAZEPINES FS SCH (09:18)
[2019-07-26] MEDS ORDERED: Morphine 2 MG/ML SYRINGE SLOW IVP PRN (09:18)
[2019-07-26] MEDS ORDERED: Lorazepam 2 MG/ML VIAL SLOW IVP PRN (09:18)
[2019-07-26] MEDS ORDERED: fentaNYL Citrate/PF 2,000 MCG in Sodium Chloride 0.9% 60 ML IV SCH (09:18)
[2019-07-26] MEDS ORDERED: Iopamidol-370 76% 500 ML 1 ML ONE (09:58)
[2019-07-26] MEDS: Dextrose 5 % And 0.9 % NaCl 1,000 ML IV SCH ×3 (10:00→23:17)
[2019-07-26] MEDS ORDERED: Dextrose 5% in Water 1,000 ML IV PRN (10:05)
[2019-07-26] MEDS ORDERED: Dextrose 50% Abboject 50 ML SYRINGE SLOW IVP PRN (10:05)
[2019-07-26 10:06] LABS: Lactic Acid 1.2 mmol/L (0.5-2.2)
[2019-07-26] MEDS ORDERED: Albuterol 200 PUFF (6.7GM INHALER) INH SCH (10:30)
[2019-07-26] MEDS: Piperacillin/Tazobactam 4.5 GM in Sodium Chloride 0.9% 100 ML IVPB SCH ×3 (11:43→23:05)
--- NOTE | 2019-07-26 13:54 | CON ---
DATE OF CONSULTATION: 07/26/2019 HISTORY OF PRESENT ILLNESS: Ms. Block is a 68-year-old female, who has small- cell lung cancer. She completed her chemo at the end of last year. She apparently presented with shortness of breath and was intubated. PAST MEDICAL HISTORY: Remarkable for: 1. Coronary artery disease. 2. Hypertension. 3. History of bronchoscopy by Dr. Castellanos last fall revealing small-cell carcinoma. 4. History of admission for dehydration. 5. History of an appendectomy. 6. History of hysterectomy. FAMILY HISTORY: Positive for hypertension. SOCIAL HISTORY: She is a nonsmoker and occasional drinker. ALLERGIES: REPORTS ALLERGIES TO: 1. ERYTHROMYCIN. 2. PENICILLIN. REVIEW OF SYSTEMS: Not obtainable. PHYSICAL EXAMINATION: VITAL SIGNS: Heart rate is 140, blood pressure is 107/59, respiratory rates in the teens. NECK: Unremarkable. LUNGS: Remarkable for distant breath sounds. HEART: Regular rhythm. ABDOMEN: Soft. EXTREMITIES: Without edema. LABORATORY DATA: White count 11.3, hemoglobin 11.6, platelets 321. Sodium 135, potassium 3.9, chloride 96, bicarb 22, BUN 20, creatinine 0.88. A pH 7.34, CO2 of 42, pO2 of 326. Chest x-ray shows right upper lobe atelectasis. IMPRESSION AND PLAN: ? Sepsis. Cultures are pending. It is too early for her to have recurrence of her small-cell carcinoma. CT scanning was done in the emergency room showing right upper lobe atelectasis and right middle lobe atelectasis suggesting there is an endobronchial obstruction. Bilateral lower lobe infiltrates were seen. The patient is COVID isolated. We will continue with supportive current care, antimicrobial therapy, and await COVID results. She has no history of asthma or chronic obstructive pulmonary disease, but given that her respiratory distress is out of proportion to what one would expect based on her radiograph, maybe a component of this is reactive airways. CRITICAL CARE TIME: 30 minutes. Job ID: [id number] MTDD
[2019-07-26 14:39] LABS: Legionella Urinary Ag Negative (Negative); Strep pneumo Urine Ag NEGATIVE (NEGATIVE)
[2019-07-26] MEDS ORDERED: Albuterol Sulfate 2.5 mg/0.5 ml Neb ONE (15:01)
[2019-07-26] MEDS: Albuterol Sulfate 2.5 mg/3 ml Neb NEB SCH ×3 (15:09→21:55)
[2019-07-26] MEDS: Acetaminophen 650 MG/20.3 ML UDCUP PO PRN ×2 (15:48→20:07)
[2019-07-26] MEDS: Propofol 1,000 MG/100 ML VIAL IV PRN (23:04)
[2019-07-27] MEDS: Albuterol Sulfate 2.5 mg/3 ml Neb NEB SCH ×6 (02:17→22:12)
[2019-07-27 05:07] LABS: #Eosinphils 0.2 thou/uL (0.0-0.7); #Lymphocytes 0.8 thou/uL (1.20-3.40); #Monocytes 0.7 thou/uL (0.11-0.59); #Neutrophils 5.1 thou/uL (1.40-6.50); %Basophils 0.4 % (0.0-1.0); %Eosinophils 2.5 % (0.0-10.0); %Lymphocytes 11.2 % (21.0-51.0); %Monocytes 10.1 % (0.0-10.0); %Neutrophils 75.8 % (42.0-75.0); Hemoglobin 9.4 g/dL (12.0-16.0); Mean Corpuscular HGB CONC 32.7 g/dL (32.0-36.0); Mean Corpuscular Hemoglobin 26.4 pg (27.0-31.0); Mean Corpuscular Volume 80.7 fL (78.0-98.0); Mean Platelet Volume 6.8 fL (7.4-10.4); Platelet Count 173 thou/uL (130-400); RBC Distribution Width 14.8 % (11.5-14.5); Red Blood Cell (RBC) Count 3.56 mill/uL (4.20-5.40); White Blood Cell (WBC) Count 6.7 thou/uL (4.8-10.8)
[2019-07-27 05:29] LABS: Anion Gap 10 mmol/L (10-20); BUN (Urea Nitrogen) 8 mg/dL (9.8-20.1); Calc. Creatinine Clearance 108 mL/min (70-130); Calcium 8.1 mg/dL (7.8-10.44); Carbon Dioxide 21 mmol/L (23-31); Chloride 109 mmol/L (98-107); Estimated GFR-MDRD Greater than 90; Glucose 148 mg/dL (80-115); Magnesium 1.3 mg/dL (1.6-2.6); Potassium 2.4 mmol/L (3.5-5.1); Sodium 138 mmol/L (136-145)
[2019-07-27] MEDS ORDERED: Potassium Chloride 20 MEQ TAB PO PRN (05:42)
[2019-07-27] MEDS ORDERED: Magnesium 2 GM/50 ML 2 GM in Premix Bag 1 BAG IVPB PRN (05:42)
[2019-07-27] MEDS ORDERED: Potassium Chloride 40 MEQ in Sodium Chloride 0.9% 250 ML 250 ML IVPB PRN (05:42)
[2019-07-27] MEDS ORDERED: Magnesium Oxide 400 MG TAB PO PRN (05:42)
[2019-07-27] MEDS ORDERED: PHOS-NAK 1 PKT PACK PO PRN ×2 (05:42)
[2019-07-27] MEDS ORDERED: Potassium Phosphate 12 MMOL in Sodium Chloride 0.9% 250 ML 250 ML IV PRN (05:42)
[2019-07-27] MEDS ORDERED: Potassium Phosphate 9 MMOL in Sodium Chloride 0.9% 100 ML IVPB PRN (05:42)
[2019-07-27] MEDS ORDERED: CCU ELECTROLYTE REPLACEMENT PROTOCOL FS PRN (05:42)
[2019-07-27] MEDS ORDERED: Potassium Phosphate 15 MMOL in Sodium Chloride 0.9% 250 ML 250 ML IV PRN (05:42)
[2019-07-27] MEDS: Piperacillin/Tazobactam 4.5 GM in Sodium Chloride 0.9% 100 ML IVPB SCH ×4 (06:08→23:12)
[2019-07-27] MEDS: Potassium Chloride 40 MEQ in Premix Bag 1 BAG IVPB PRN ×2 (06:09→13:00)
[2019-07-27 07:26] LABS: Actual Bicarbonate (HCO3a) 20.7 mEq/L (22-28); CO2 Tension 32.1 mmHg (35.0-45.0); Calcium, Ionized 1.24 mmol/L (1.12-1.30); Carboxyhemoglobin (COHb) 0.1 gm% (0.0-3.0); Hemoglobin (Hb) 9.8 g/dL (12.0-16.0); O2 Tension (PaO2) 141.7 mmHg (> 80.0); Potassium - ABG Lab 2.59 mmol/L (3.70-5.30); pH, Arterial 7.43 (7.35-7.45)
[2019-07-27 07:33] LABS: ALV-art Gradient 103.375 (0-20); Puncture Site LRA
[2019-07-27] MEDS: Sodium Chloride 0.45% 1,000 ML IV SCH ×2 (08:56→20:13)
[2019-07-27] MEDS: Enoxaparin Sodium 40 MG/0.4 ML SYRINGE SC SCH (08:57)
[2019-07-27] MEDS: Clopidogrel Bisulfate 75 MG TAB PO SCH (08:57)
[2019-07-27] MEDS: Propofol 1,000 MG/100 ML VIAL IV PRN (08:58)
[2019-07-27] MEDS ORDERED: Vancomycin 1.5 GRAM/300 ML BAG 1.5 GM in Premix Bag 1 BAG IVPB SCH (09:00)
[2019-07-27] MEDS ORDERED: Enoxaparin Sodium 30 MG/0.3 ML SYRINGE SC SCH (09:00)
[2019-07-27] MEDS: methylPREDNISolone Sod Succ 40 MG VIAL IVP SCH ×3 (12:18→23:13)
[2019-07-27] MEDS: Acetaminophen 650 MG/20.3 ML UDCUP PO PRN (12:18)
[2019-07-27 12:49] LABS: Magnesium 1.7 mg/dL (1.6-2.6)
[2019-07-27 12:52] LABS: Potassium 2.9 mmol/L (3.5-5.1)
--- NOTE | 2019-07-27 14:16 | PRG ---
DATE OF SERVICE: 07/27/2019 SUBJECTIVE: Ms. Block awakens and follows commands. Her COVID was negative. I do not see where any blood cultures are reported out. OBJECTIVE: VITAL SIGNS: Heart rate still in the 130s to 140s, blood pressure 102/70, respiratory rate is 24. LUNGS: Clear. HEART: Regular rhythm. ABDOMEN: Soft. EXTREMITIES: Without asymmetry. IMPRESSION: 1. Febrile illness with tachycardia that correlates with her temperature spikes usually. 2. History of coronary artery disease. 3. History of small cell carcinoma that is recurrent. 4. Hypertension. 5. Appendectomy. 6. Status post hysterectomy. With regard to her tachycardia, it appears to be sinus tach. She does slow down when she is not febrile. There is no thromboembolic disease seen on her CAT scan. An echocardiogram will be done to make sure she does not have early tamponade. We will continue to follow the other physicians caring for her. Critical care time 35 min. Job ID: [id number] MTDD
--- NOTE | 2019-07-27 15:05 | PDOC.HOSPP ---
- Subjective Encounter Date: 07/27/19 Encounter Time: 10:00 Subjective: no overnight events. This morning, alert, following commands and nodding head in response to yes/no questions. Ventilating well on minimal SIMV parameters. Fever improving. No allergic reaction to zosyn noted. - Objective Vital Signs & Weight: Vital Signs (12 hours) Pulse Resp BP Pulse Ox 07/27/19 14:51 137 H 21 H 99 07/27/19 14:31 142 H 124/73 07/27/19 14:00 18 07/27/19 12:00 12 07/27/19 10:53 136 H 85/58 L 07/27/19 10:51 137 H 19 99 07/27/19 10:00 18 07/27/19 08:57 18 98 07/27/19 08:00 18 96 07/27/19 07:29 137 H 112/75 07/27/19 07:28 137 H 18 99 07/27/19 06:00 18 07/27/19 04:00 18 Weight Admit Weight 153 lb 0.013 oz Weight 152 lb 14.4 oz Most Recent Monitor Data Heart Rate from ECG 144 NIBP 120/73 NIBP BP-Mean 88 Respiration from ECG 17 SpO2 98 I&O: 07/26/19 07/27/19 07/28/19 06:59 06:59 06:59 Intake Total 3767.7 1045 Output Total 1755 585 Balance 2012.7 460 Result Diagrams: 07/27/19 04:20 07/27/19 12:10 Additional Labs: Accuchecks 07/27/19 07/26/19 07/26/19 04:30 23:36 18:08 POC Glucose 150 H 156 H 147 H Hospitalist ROS - Review of Systems ROS unobtainable: due to endotracheal tube - Medication Medications: Active Medications Generic Name Dose Route Start Last Admin Trade Name Freq PRN Reason Stop Dose Admin Acetaminophen 650 mg 07/26/19 15:28 07/27/19 12:18 Tylenol Elixir PO 650 mg Q4H PRN Administration Fever/Mild Pain (1-3) Albuterol Sulfate 2.5 mg 07/26/19 14:30 07/27/19 14:51 Ventolin NEB 2.5 mg [id number] PAULA Administration Clopidogrel Bisulfate 75 mg 07/27/19 09:00 07/27/19 08:57 Plavix PO 75 mg DAILY PAULA Administration Enoxaparin Sodium 40 mg 07/27/19 09:00 07/27/19 08:57 Lovenox SC 40 mg 0900 PAULA Administration Norepinephrine Bitartrate 250 mls @ 0 mls/hr 07/26/19 08:57 07/26/19 15:48 Levophed IVPB 250 mls PRN PRN Administration To maintain MAP > 65 Protocol Titrate Vancomycin HCl 1.5 gm/ Device 300 mls @ 200 mls/hr 07/27/19 09:00 07/27/19 10 :45 IVPB 300 mls 0900 PAULA Administration Piperacillin Sod/Tazobactam 100 mls @ 200 mls/hr 07/26/19 12:00 07/27/19 12: 18 Sod 4.5 gm/ Sodium Chloride IVPB 100 mls Q6HR PAULA Administration Levofloxacin 750 mg/ Device 150 mls @ 100 mls/hr 07/26/19 09:00 07/27/19 08: 56 IVPB 150 mls Q24HR PAULA Administration Fentanyl Citrate 2,000 mcg/ 100 mls @ 0 mls/hr 07/26/19 09:18 07/27/19 02:21 Sodium Chloride IV 08/25/19 09:18 100 mls INF PAULA Administration Protocol Per Protocol Potassium Chloride 40 meq/ 100 mls @ 50 mls/hr 07/27/19 05:42 07/27/19 13:00 Device IVPB 100 mls ASDIR PRN Administration FOR SERUM K+ 2.5 - 3.5 Magnesium Sulfate 2 gm/ Device 50 mls @ 50 mls/hr 07/27/19 05:42 07/27/19 06: 08 IVPB 50 mls ASDIR PRN Administration MAGNESIUM < 1.4 Sodium Chloride 1,000 mls @ 100 mls/hr 07/27/19 08:30 07/27/19 08:56 1/2 Normal Saline IV 1,000 mls .Q10H PAULA Administration Methylprednisolone Sodium Succinate 40 mg 07/27/19 12:00 07/27/19 12:18 Solu-Medrol IVP 40 mg Q6HR PAULA Administration Propofol 1,000 mg 07/26/19 09:18 07/27/19 08:58 Diprivan IV 08/25/19 09:18 1,000 mg INF PRN Administration TO ACHIEVE GOAL RASS Protocol Sodium Chloride 10 ml 07/26/19 09:00 07/27/19 11:41 Flush - Normal Saline IVF 10 ml Q12HR PAULA Administration - Exam General Appearance: NAD, awake alert Eye: PERRL ENT: normocephalic atraumatic, moist mucosa Neck: no JVD Heart: no murmur, no gallops, no rubs Heart - other findings: tachycadic, improved compared to yeterday. normal rhythm Respiratory: CTAB, no wheezes, no rales, no ronchi, normal chest expansion, no tachypnea Gastrointestinal: soft, non-tender, non-distended, normal bowel sounds Extremities: no edema Hosp A/P (1) Aspiration pneumonia Code(s): J69.0 - PNEUMONITIS DUE TO INHALATION OF FOOD AND VOMIT Status: Acute (2) Suspected COVID-19 virus infection Code(s): R68.89 - OTHER GENERAL SYMPTOMS AND SIGNS Status: Acute (3) Small cell carcinoma of right lung Code(s): C34.91 - MALIGNANT NEOPLASM OF UNSP PART OF RIGHT BRONCHUS OR LUNG Status: Acute (4) History of coronary artery stent placement Code(s): Z95.5 - PRESENCE OF CORONARY ANGIOPLASTY IMPLANT AND GRAFT Status: Acute (5) Sepsis Code(s): A41.9 - SEPSIS, UNSPECIFIED ORGANISM Status: Acute - Plan #CAP/aspiration pneumonia -COVID and respiraotry panel negative; stop isolation precautions -blood culture growing strep, pending speciation -fever and tachycardia downtrending -repeat blood culture; 1 set from port, another from periphery -continue antibiotics pending finalization of cultures -TTE to assess for cardiogenic shock -SBTs as per ICU management otherwise unchanged
[2019-07-27 18:07] LABS: Potassium 3.4 mmol/L (3.5-5.1)
[2019-07-28] MEDS: Albuterol Sulfate 2.5 mg/3 ml Neb NEB SCH ×2 (02:16→07:22)
[2019-07-28] MEDS: Sodium Chloride 0.45% 1,000 ML IV SCH ×2 (02:35→20:36)
[2019-07-28 04:14] LABS: Anion Gap 12 mmol/L (10-20); BUN (Urea Nitrogen) 8 mg/dL (9.8-20.1); Calc. Creatinine Clearance 124 mL/min (70-130); Calcium 8.4 mg/dL (7.8-10.44); Carbon Dioxide 21 mmol/L (23-31); Chloride 110 mmol/L (98-107); Estimated GFR-MDRD Greater than 90; Glucose 160 mg/dL (80-115); Magnesium 1.7 mg/dL (1.6-2.6); Sodium 140 mmol/L (136-145)
[2019-07-28 04:29] LABS: Potassium 2.8 mmol/L (3.5-5.1)
[2019-07-28] MEDS: Potassium Chloride 40 MEQ in Premix Bag 1 BAG IVPB PRN (04:43)
[2019-07-28] MEDS ORDERED: Norepinephrine 8 MG in Dextrose 5% in Water 242 ML IVPB PRN (04:44)
[2019-07-28] MEDS: Magnesium Oxide 400 MG TAB PO PRN ×2 (04:44→18:35)
[2019-07-28] MEDS: Piperacillin/Tazobactam 4.5 GM in Sodium Chloride 0.9% 100 ML IVPB SCH ×3 (05:02→18:00)
[2019-07-28] MEDS: methylPREDNISolone Sod Succ 40 MG VIAL IVP SCH ×3 (05:02→18:02)
[2019-07-28 07:38] LABS: Actual Bicarbonate (HCO3a) 22.9 mEq/L (22-28); Base Excess (BEa) -3.2 mEq/L (-2.0 to +3.0); CO2 Tension 46.7 mmHg (35.0-45.0); Calcium, Ionized 1.28 mmol/L (1.12-1.30); Carboxyhemoglobin (COHb) 0.9 gm% (0.0-3.0); Hemoglobin (Hb) 8.1 g/dL (12.0-16.0); O2 Tension (PaO2) 115.3 mmHg (> 80.0); Potassium - ABG Lab 3.21 mmol/L (3.70-5.30); pH, Arterial 7.31 (7.35-7.45)
[2019-07-28 07:47] LABS: ALV-art Gradient 111.525 (0-20); Puncture Site RRA
[2019-07-28] MEDS: Clopidogrel Bisulfate 75 MG TAB PO SCH (08:13)
[2019-07-28] MEDS: Enoxaparin Sodium 40 MG/0.4 ML SYRINGE SC SCH (08:13)
--- NOTE | 2019-07-28 08:36 | PDOC.HOSPP ---
- Subjective Encounter Date: 07/28/19 Encounter Time: 08:00 Subjective: no overnight events. This morning, alert and following commands. Nods heads to yes/no questions. - Objective Vital Signs & Weight: Vital Signs (12 hours) Pulse Resp BP 07/28/19 07:28 119 H 07/28/19 06:00 13 07/28/19 04:00 13 07/28/19 02:00 16 07/28/19 00:00 16 07/27/19 22:13 121 H 104/59 L 07/27/19 22:00 18 Weight Admit Weight 153 lb 0.013 oz Weight 152 lb 14.4 oz Most Recent Monitor Data Heart Rate from ECG 117 NIBP 89/53 NIBP BP-Mean 65 Respiration from ECG 9 SpO2 97 I&O: 07/27/19 07/28/19 07/29/19 06:59 06:59 06:59 Intake Total 3767.7 3954.9 Output Total 1755 1710 Balance 2012.7 2244.9 Result Diagrams: 07/27/19 04:20 07/28/19 03:30 Hospitalist ROS - Review of Systems Constitutional: denies: fever, chills, sweats, weakness, malaise, other Cardiovascular: denies: chest pain, palpitations, orthopnea, paroxysmal noc. dyspnea, edema, light headedness, other Gastrointestinal: denies: abdominal pain - Medication Medications: Active Medications Generic Name Dose Route Start Last Admin Trade Name Freq PRN Reason Stop Dose Admin Acetaminophen 650 mg 07/26/19 15:28 07/27/19 12:18 Tylenol Elixir PO 650 mg Q4H PRN Administration Fever/Mild Pain (1-3) Albuterol Sulfate 2.5 mg 07/26/19 14:30 07/28/19 07:22 Ventolin NEB 2.5 mg [id number] PAULA Administration Clopidogrel Bisulfate 75 mg 07/27/19 09:00 07/28/19 08:13 Plavix PO 75 mg DAILY PAULA Administration Enoxaparin Sodium 40 mg 07/27/19 09:00 07/28/19 08:13 Lovenox SC 40 mg 0900 PAULA Administration Vancomycin HCl 1.5 gm/ Device 300 mls @ 200 mls/hr 07/27/19 09:00 07/27/19 10 :45 IVPB 300 mls 0900 PAULA Administration Piperacillin Sod/Tazobactam 100 mls @ 200 mls/hr 07/26/19 12:00 07/28/19 05: 02 Sod 4.5 gm/ Sodium Chloride IVPB 100 mls Q6HR PAULA Administration Levofloxacin 750 mg/ Device 150 mls @ 100 mls/hr 07/26/19 09:00 07/28/19 08: 14 IVPB 150 mls Q24HR PAULA Administration Fentanyl Citrate 2,000 mcg/ 100 mls @ 0 mls/hr 07/26/19 09:18 07/27/19 02:21 Sodium Chloride IV 08/25/19 09:18 100 mls INF PAULA Administration Protocol Per Protocol Potassium Chloride 40 meq/ 100 mls @ 50 mls/hr 07/27/19 05:42 07/28/19 04:43 Device IVPB 100 mls ASDIR PRN Administration FOR SERUM K+ 2.5 - 3.5 Magnesium Sulfate 2 gm/ Device 50 mls @ 50 mls/hr 07/27/19 05:42 07/27/19 06: 08 IVPB 50 mls ASDIR PRN Administration MAGNESIUM < 1.4 Sodium Chloride 1,000 mls @ 100 mls/hr 07/27/19 08:30 07/28/19 02:35 1/2 Normal Saline IV 1,000 mls .Q10H PAULA Administration Norepinephrine Bitartrate 8 mg 250 mls @ 0 mls/hr 07/28/19 04:44 07/28/19 04: 49 / Dextrose/Water IVPB 250 mls INF PRN Administration TO MAINTAIN MAP > 65 Protocol As Directed Magnesium Oxide 400 mg 07/27/19 05:42 07/28/19 04:44 Magnesium Oxide PO 400 mg BIDPRN PRN Administration FOR SERUM MAG 1.4 - 2.0 Methylprednisolone Sodium Succinate 40 mg 07/27/19 12:00 07/28/19 05:02 Solu-Medrol IVP 40 mg Q6HR PAULA Administration Propofol 1,000 mg 07/26/19 09:18 07/27/19 08:58 Diprivan IV 08/25/19 09:18 1,000 mg INF PRN Administration TO ACHIEVE GOAL RASS Protocol Sodium Chloride 10 ml 07/26/19 09:00 07/28/19 08:15 Flush - Normal Saline IVF 10 ml Q12HR PAULA Administration - Exam General Appearance: NAD, awake alert General - other findings: minimally sedated but fully alert Neck: no JVD Heart: no murmur, no gallops, no rubs Heart - other findings: tachycardic, improved Respiratory: CTAB, no wheezes, no rales, no ronchi Gastrointestinal: soft, non-tender, non-distended, normal bowel sounds Extremities: no edema Psychiatric: normal affect, normal behavior Hosp A/P (1) Aspiration pneumonia Code(s): J69.0 - PNEUMONITIS DUE TO INHALATION OF FOOD AND VOMIT Status: Acute (2) Suspected COVID-19 virus infection Code(s): R68.89 - OTHER GENERAL SYMPTOMS AND SIGNS Status: Acute (3) Small cell carcinoma of right lung Code(s): C34.91 - MALIGNANT NEOPLASM OF UNSP PART OF RIGHT BRONCHUS OR LUNG Status: Acute (4) History of coronary artery stent placement Code(s): Z95.5 - PRESENCE OF CORONARY ANGIOPLASTY IMPLANT AND GRAFT Status: Acute (5) Sepsis Code(s): A41.9 - SEPSIS, UNSPECIFIED ORGANISM Status: Acute - Plan #CAP/aspiration pneumonia -COVID and respiraotry panel negative; stop isolation precautions -clinically improving -BP borderliine -continue ABx pending culture finalization -reduce sedation, should improve BP; extubation should improve blood pressure as well once PEEP removed -as bp improved, can go down on pressors if possible -possible extubation #streptococcus bacteremia -alpha hemolytic, single bottle, contaminant -continue antibiotics pending finalization of cultures -TTE to assess for cardiogenic shock -SBTs as per ICU #metabolic and respiratory acidosis -normal anion gap metabolic likely due to GI losses, saline -respiratory due to hypoventilation; should improve with reduction of sedation management otherwise unchanged
[2019-07-28 08:54] LABS: Vancomycin, Trough 4.1 ug/mL
[2019-07-28] MEDS ORDERED: DC Sedation Protocol FS ONE (08:57)
--- NOTE | 2019-07-28 09:11 | PRG ---
DATE OF SERVICE: 07/28/2019 SUBJECTIVE: This morning, she is awake, alert, and responsive. OBJECTIVE: VITAL SIGNS: Pulse 119, blood pressure is , respiratory rate 18, pulse 80. CHEST: Diffuse wheezing. CARDIAC: Normal S1, S2. No gallops. ABDOMEN: No masses. LABORATORY DATA: Potassium 2.8, other labs are unremarkable. PO2 115, pCO2 46, pH 7.31. COVID-19 test was negative. Cultures, blood growing alpha strep, probably sensitive to present antibiotic. ASSESSMENT: 1. Staph sepsis. 2. Lung cancer. 3. Pneumonia. 4. COVID negative. 5. Chronic obstructive pulmonary disease. PLAN: Re-extubate. Continue antibiotics, supportive care. We will probably discontinue vancomycin tomorrow. One half hour of critical care time. Job ID: [id number]
[2019-07-28] MEDS: Potassium Chloride 20 MEQ TAB PO SCH ×2 (14:20→14:26)
[2019-07-28 18:13] LABS: Magnesium 1.5 mg/dL (1.6-2.6); Potassium 3.4 mmol/L (3.5-5.1)
[2019-07-28] MEDS: Mometasone 200 MCG/Formoterol 5 MCG 120 PUFF INHALER INH SCH (19:22)
[2019-07-29] MEDS: Piperacillin/Tazobactam 4.5 GM in Sodium Chloride 0.9% 100 ML IVPB SCH ×2 (00:10→05:40)
[2019-07-29] MEDS: methylPREDNISolone Sod Succ 40 MG VIAL IVP SCH ×4 (00:11→20:39)
[2019-07-29] MEDS: Sodium Chloride 0.45% 1,000 ML IV SCH ×2 (00:15→11:07)
[2019-07-29 04:53] LABS: Anion Gap 12 mmol/L (10-20); BUN (Urea Nitrogen) 10 mg/dL (9.8-20.1); Calc. Creatinine Clearance 129 mL/min (70-130); Calcium 8.7 mg/dL (7.8-10.44); Carbon Dioxide 24 mmol/L (23-31); Chloride 107 mmol/L (98-107); Estimated GFR-MDRD Greater than 90; Glucose 124 mg/dL (80-115); Potassium 3.5 mmol/L (3.5-5.1); Sodium 139 mmol/L (136-145)
[2019-07-29] MEDS: Mometasone 200 MCG/Formoterol 5 MCG 120 PUFF INHALER INH SCH ×2 (07:23→18:54)
[2019-07-29] MEDS: Clopidogrel Bisulfate 75 MG TAB PO SCH (08:23)
[2019-07-29] MEDS: Enoxaparin Sodium 40 MG/0.4 ML SYRINGE SC SCH (08:23)
[2019-07-29] MEDS ORDERED: Non-Formulary Item 1 EACH (Sertraline Hcl [Sertraline Hcl] 100 MG) PO SCH (09:00)
--- NOTE | 2019-07-29 09:39 | PRG ---
DATE OF SERVICE: 07/29/2019 SUBJECTIVE: This morning, the patient is doing better. She is sitting on the side of the commode. Slight respiratory distress. OBJECTIVE: VITAL SIGNS: Pulse 110, respirations 20, saturations are 98% on 2 L, and blood pressure 112/97. CHEST: Minimal wheezing. CARDIAC: Normal S1 and S2. No gallops. ABDOMEN: No masses. LABORATORY DATA: Lytes are normal. ASSESSMENT: Small-cell lung cancer, respiratory failure, sepsis syndrome, alpha strep, probably sensitive to pretty much all antibiotics. PLAN: I will switch her to oral medication and continue steroids. She can be transferred out to the monitored bed. She needs input from Oncology to see what the long-term plans are. Job ID: [id number]
--- NOTE | 2019-07-29 17:17 | CON ---
DATE OF CONSULTATION: REASON FOR CONSULT: Small cell lung cancer. HISTORY OF PRESENT ILLNESS: Ms. 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 She had recent progression in May with decline in performance status, hypovolemia, prerenal azotemia, hypoxia, and right upper lobe collapse. She was hospitalized in May of this year for these reasons. She had lost over 10 pounds. She had a repeat PET scan on June 29, which showed minor improvement in her disease. However, she was not eating due to early satiety and had continued to lose weight. Decision was made to hold Tecentriq and refer her to Dr. Smith for palliative radiation to her right upper lobe. She has received 3 of 15 cycles. She presented to the emergency room on July 25 with progressive shortness of breath. She was hypoxic in the emergency room and intubated. She has since been extubated and is on the telemetry floor. She complains of shortness of breath. She appears to be forgetful. However, she did have an MRI on 07/19 that was negative for metastasis. She is currently on 4 L nasal cannula and saturating around 90%. PAST MEDICAL HISTORY: 1. Extensive small cell lung cancer. 2. Hypertension. 3. Coronary artery disease. 4. Hyperlipidemia. 5. Asthma. 6. COPD. 7. Anxiety and depression. 8. GERD. 9. History of tobacco use. PAST SURGICAL HISTORY: 1. Appendectomy. 2. Hysterectomy. 3. Coronary artery stent placement. 4. Cataract surgery. 5. Bronchoscopy. ALLERGIES: TO PENICILLIN AND ERYTHROMYCIN. HOME MEDICATIONS: 1. Plavix. 2. DuoNeb. 3. Toprol. 4. Zofran. 5. Sertraline. 6. Ventolin. 7. Megestrol. 8. Metoprolol. FAMILY HISTORY: Noncontributory. SOCIAL HISTORY: , lives with her spouse. Has 3 children. No alcohol, tobacco, or illicit drug use. REVIEW OF SYSTEMS: Positive shortness of breath. Otherwise, negative. PHYSICAL EXAMINATION: VITAL SIGNS: Temperature is 98.0, pulse is 105, respiratory rate 20, blood pressure is 162/85, and she is 93% on 2 L. GENERAL: Chronically ill-appearing female, in no acute distress. HEENT: Normocephalic, atraumatic. Pupils are equal and reactive to light. CARDIOVASCULAR: Regular rate and rhythm. LUNGS: She has crackles. No rhonchi throughout. ABDOMEN: Soft and nontender. Bowel sounds are positive. EXTREMITIES: No clubbing or cyanosis. SKIN: No rash. NEUROLOGICAL: Nonfocal. PSYCH: She appears to have some short-term memory loss. PERTINENT LABORATORY DATA AND X-RAYS: Current WBCs are 6.7, hemoglobin 9.4, hematocrit 28.8, platelet count 173,000, she has 76% neutrophils, 12% lymphocytes. Sodium 139, potassium 3.5, chloride 107, CO2 is 24, BUN is 10, creatinine 0.47, calcium 8.7, and magnesium 1.7. Bilirubin 0.5, AST is 29, ALT is 12, alkaline phosphatase is 55, serum total protein is 7.8, albumin 3.9, and globulin 3.9. COVID is negative. Radiology per HPI. ASSESSMENT: 1. Extensive stage small cell carcinoma likely with recent progression. 2. Acute on chronic respiratory failure. DISCUSSION: The patient has been on Tecentriq, which is currently being held while she is undergoing radiation to that right upper lobe. She has had 3 of 15 treatments. She has declined with poor performance status and weight loss. Palliative Care Team has been consulted to discuss code status and goals of care. Dr. Smith has been informed of her hospitalization. Thank you for the consult. We will follow along with her hospital course. Job ID: [id number]
--- NOTE | 2019-07-29 22:40 | PDOC.HOSPP ---
- Subjective Encounter Date: 07/29/19 Encounter Time: 09:00 Subjective: overnight, no events. Breathing and saturating well on 2L NC. Has no complaints. - Objective Vital Signs & Weight: Vital Signs (12 hours) Temp Pulse Resp BP Pulse Ox 07/29/19 19:52 97.2 F L 96 14 115/55 L 99 07/29/19 18:39 16 07/29/19 15:40 98.1 F 105 H 20 131/67 95 07/29/19 13:29 93 L 07/29/19 13:26 105 H 20 07/29/19 11:36 98.0 F 98 22 H 162/85 H 90 L Weight Admit Weight 153 lb 0.013 oz Weight 2.455 oz Most Recent Monitor Data Heart Rate from ECG 101 NIBP 134/87 NIBP BP-Mean 102 Respiration from ECG 37 SpO2 94 I&O: 07/28/19 07/29/19 07/30/19 06:59 06:59 06:59 Intake Total 3954.9 3253.7 1368 Output Total 1710 1273 835 Balance 2244.9 1980.7 533 Result Diagrams: 07/27/19 04:20 07/29/19 03:30 Additional Labs: Accuchecks 07/29/19 00:32 POC Glucose 125 H Hospitalist ROS - Review of Systems Constitutional: denies: fever, chills, sweats, weakness, malaise, other Respiratory: reports: cough, dry, shortness of breath, SOB with excertion, wheezing. denies: hemoptysis, pleuritic pain, sputum Cardiovascular: denies: chest pain, palpitations, orthopnea, paroxysmal noc. dyspnea, edema, light headedness, other Gastrointestinal: denies: nausea, vomiting, abdominal pain, diarrhea, constipation, melena, hematochezia, other - Medication Medications: Active Medications Generic Name Dose Route Start Last Admin Trade Name Freq PRN Reason Stop Dose Admin Acetaminophen 650 mg 07/26/19 15:28 07/27/19 12:18 Tylenol Elixir PO 650 mg Q4H PRN Administration Fever/Mild Pain (1-3) Albuterol/Ipratropium 3 ml 07/28/19 13:00 07/29/19 18:39 Duoneb NEB 3 ml [id number] PAULA Administration Clopidogrel Bisulfate 75 mg 07/27/19 09:00 07/29/19 08:23 Plavix PO 75 mg DAILY PAULA Administration Enoxaparin Sodium 40 mg 07/27/19 09:00 07/29/19 08:23 Lovenox SC 40 mg 0900 PAULA Administration Potassium Chloride 40 meq/ 100 mls @ 50 mls/hr 07/27/19 05:42 07/28/19 04:43 Device IVPB 100 mls ASDIR PRN Administration FOR SERUM K+ 2.5 - 3.5 Magnesium Sulfate 2 gm/ Device 50 mls @ 50 mls/hr 07/27/19 05:42 07/27/19 06: 08 IVPB 50 mls ASDIR PRN Administration MAGNESIUM < 1.4 Norepinephrine Bitartrate 8 mg 250 mls @ 0 mls/hr 07/28/19 04:44 07/28/19 04: 49 / Dextrose/Water IVPB 250 mls INF PRN Administration TO MAINTAIN MAP > 65 Protocol As Directed Magnesium Oxide 400 mg 07/27/19 05:42 07/28/19 18:35 Magnesium Oxide PO 400 mg BIDPRN PRN Administration FOR SERUM MAG 1.4 - 2.0 Methylprednisolone Sodium Succinate 40 mg 07/29/19 09:00 07/29/19 20:39 Solu-Medrol IVP 40 mg BID PAULA Administration Metoprolol Succinate 50 mg 07/29/19 09:00 07/29/19 08:26 Toprol Xl PO 50 mg DAILY PAULA Administration Mometasone Furoate/Formoterol Fumar 2 puff 07/28/19 18:30 07/29/19 18:54 Dulera 200 Mcg/5 Mcg Inhaler INH 2 puff BID-RT PAULA Administration Potassium Chloride 40 meq 07/27/19 05:42 07/28/19 19:15 K-Dur PO 40 meq ASDIR PRN Administration FOR SERUM K+ 2.5 - 3.5 Potassium Chloride 40 meq 07/27/19 05:42 07/29/19 05:50 Klor-Con PER TUBE 40 meq ASDIR PRN Administration FOR SERUM K+ 2.5-3.5 Sertraline HCl 100 mg 07/29/19 09:00 07/29/19 08:26 Zoloft PO 100 mg DAILY PAULA Administration Sodium Chloride 10 ml 07/26/19 09:00 07/29/19 20:39 Flush - Normal Saline IVF 10 ml Q12HR PAULA Administration - Exam General Appearance: NAD, awake alert Heart: no murmur, no gallops, no rubs Heart - other findings: regular rhythm, tachycardia Respiratory: no rales, no ronchi, tachypneic, wheezes Respiratory - other findings: worsening tachypnea when conversing Gastrointestinal: soft, non-tender, non-distended, normal bowel sounds Extremities: no edema Psychiatric: normal affect, normal behavior, A&O x 3 Hosp A/P (1) Aspiration pneumonia Code(s): J69.0 - PNEUMONITIS DUE TO INHALATION OF FOOD AND VOMIT Status: Acute (2) Suspected COVID-19 virus infection Code(s): R68.89 - OTHER GENERAL SYMPTOMS AND SIGNS Status: Acute (3) Small cell carcinoma of right lung Code(s): C34.91 - MALIGNANT NEOPLASM OF UNSP PART OF RIGHT BRONCHUS OR LUNG Status: Acute (4) History of coronary artery stent placement Code(s): Z95.5 - PRESENCE OF CORONARY ANGIOPLASTY IMPLANT AND GRAFT Status: Acute (5) Sepsis Code(s): A41.9 - SEPSIS, UNSPECIFIED ORGANISM Status: Acute - Plan #CAP/aspiration/postobstructive pneumonia -RUL collapse since 04/2019; PET showing progressive narrowing of right mainstem bronchus -extubated (07/27) -clinically improving; transitioned to oral levofloxacin and continue respiratory treatments per ICU -too early for radiation induced lung injury (started last week) #streptococcus bacteremia -alpha hemolytic, single bottle, contaminant #metabolic and respiratory acidosis (resolved) -normal anion gap metabolic likely due to GI losses, saline -respiratory due to hypoventilation; should improve with reduction of sedation transfered to the medical floor. Oncology consulted for goals of care. ELOS 1-3 midnights, dependant on placement/goals of care decision
[2019-07-30 05:02] LABS: Anion Gap 12 mmol/L (10-20); BUN (Urea Nitrogen) 14 mg/dL (9.8-20.1); Calc. Creatinine Clearance 0 mL/min (70-130); Calcium 8.9 mg/dL (7.8-10.44); Carbon Dioxide 27 mmol/L (23-31); Chloride 105 mmol/L (98-107); Estimated GFR-MDRD Greater than 90; Glucose 115 mg/dL (80-115); Magnesium 1.8 mg/dL (1.6-2.6); Potassium 3.8 mmol/L (3.5-5.1); Sodium 140 mmol/L (136-145)
[2019-07-30] MEDS: Mometasone 200 MCG/Formoterol 5 MCG 120 PUFF INHALER INH SCH ×2 (06:57→19:12)
[2019-07-30] MEDS: methylPREDNISolone Sod Succ 40 MG VIAL IVP SCH ×2 (09:57→21:12)
[2019-07-30] MEDS: Clopidogrel Bisulfate 75 MG TAB PO SCH (09:57)
[2019-07-30] MEDS: Enoxaparin Sodium 40 MG/0.4 ML SYRINGE SC SCH (09:57)
--- NOTE | 2019-07-30 11:42 | PDOC.MOPN ---
Interval History: still sob, she is weak. no cough. she wants to go home - Vital Signs Vital Signs: Vital Signs (12 hours) Temp Pulse Resp BP Pulse Ox 07/30/19 08:00 97.5 F L 105 H 21 H 119/59 L 100 07/30/19 06:57 95 20 07/30/19 06:50 98 07/30/19 06:47 95 20 07/30/19 03:44 98.1 F 103 H 20 139/79 96 07/30/19 01:36 92 L 07/30/19 00:04 104 H 16 07/30/19 00:00 22 H 91 L Weight Admit Weight 153 lb 0.013 oz Weight 159 lb 12.8 oz Most Recent Monitor Data Heart Rate from ECG 101 NIBP 134/87 NIBP BP-Mean 102 Respiration from ECG 37 SpO2 94 - Physical Exam General: Alert, Other (slight confusion and slow speech) Cardiovascular: Regular rate Abdomen: Normal bowel sounds Extremities: Other (mid edema throughout) Skin: No rashes Neurological: Other (slowed speech) - Labs Result Diagrams: 07/27/19 04:20 07/30/19 04:41 Lab results: Laboratory Results - last 24 hr 07/30/19 04:41: Sodium 140, Potassium 3.8, Chloride 105, Carbon Dioxide 27, Anion Gap 12, BUN 14, Creatinine 0.46 L, Estimated GFR (MDRD) Greater than 90, Glucose 115, Calcium 8.9, Magnesium 1.8 A/P - Problem (1) Aspiration pneumonia Current Visit: Yes Code(s): J69.0 - PNEUMONITIS DUE TO INHALATION OF FOOD AND VOMIT Status: Acute (2) Small cell carcinoma of right lung Current Visit: Yes Code(s): C34.91 - MALIGNANT NEOPLASM OF UNSP PART OF RIGHT BRONCHUS OR LUNG Status: Acute (3) Acute renal failure Current Visit: No Status: Acute (4) Decreased oral intake Current Visit: No Code(s): R63.8 - OTHER SYMPTOMS AND SIGNS CONCERNING FOOD AND FLUID INTAKE Status: Acute (5) Palliative care encounter Current Visit: No Code(s): Z51.5 - ENCOUNTER FOR PALLIATIVE CARE Status: Acute (6) Sepsis Current Visit: No Code(s): A41.9 - SEPSIS, UNSPECIFIED ORGANISM Status: Acute - Plan Plan: 1. i did reassess code status with her. she ascencio snot want to be a DNR. i have recommended she be a DNR but she declines this. of course there is no family to discuss this with 2. i would consider hospice in this situation. her QOL is unlikely to improve and she is quarantined here. consider home with hospice, appreciate palliative care help wit this 3. we will follow peripherally, she is stable but has declined
--- NOTE | 2019-07-30 15:30 | PRG ---
DATE OF SERVICE: 07/30/2019 SUBJECTIVE: Ms. Block is not having acute distress today. Her memory of events preceding admission are poor. She still seems a little bit adult and not at her normal response level. She does, however, feel that she is getting closer to discharge. She has not been ambulatory in the room. She denies pain, cough, or shortness of breath. OBJECTIVE: VITAL SIGNS: Blood pressure 119/59, saturation 100% on 2 L of oxygen. She is afebrile. GENERAL: She is not in acute distress, but seems just a little adult. HEENT: She has no oropharyngeal Ev. LUNGS: She is mildly short of breath with end-inspiratory squeak, which is predominantly over the upper airway, but not improved by breathing through an open mouth. I do not hear any stridor. She is not using accessory muscles. Her lungs are hyperinflated, but no wheezing is heard. HEART: Regular rate and rhythm. ABDOMEN: Soft. EXTREMITIES: She has trace ankle edema. IMPRESSION: 1. Chronic obstructive pulmonary disease with exacerbation, improving. 2. Small-cell carcinoma of the lung diagnosed in late summer 2018. She has completed chemotherapy. However, CT scan demonstrates right upper lobe and right middle lobe atelectasis suggesting recurrent disease in endobronchial obstruction. Oncology has recommended consideration of DNR. PLAN: I am going to try to get her Headley catheter out. The patient declines consideration of DNR status and will follow up in the Oncology Clinic. Prognosis is very poor. Job ID: [id number]
--- NOTE | 2019-07-30 18:01 | PDOC.HOSPP ---
- Subjective Encounter Date: 07/30/19 Encounter Time: 09:00 Subjective: Pt seen for followup re: pneumonia. States she feels better. - Objective Vital Signs & Weight: Vital Signs (12 hours) Temp Pulse Resp BP Pulse Ox 07/30/19 16:00 98.7 F 105 H 20 138/80 95 07/30/19 14:57 93 16 07/30/19 12:00 97.5 F L 93 20 97 07/30/19 08:00 97.5 F L 105 H 21 H 119/59 L 100 07/30/19 06:57 95 20 07/30/19 06:50 98 07/30/19 06:47 95 20 Weight Admit Weight 153 lb 0.013 oz Weight 159 lb 12.8 oz Most Recent Monitor Data Heart Rate from ECG 101 NIBP 134/87 NIBP BP-Mean 102 Respiration from ECG 37 SpO2 94 I&O: 07/29/19 07/30/19 07/31/19 06:59 06:59 06:59 Intake Total 3253.7 1488 Output Total 1273 1135 650 Balance 1980.7 353 -650 Result Diagrams: 07/27/19 04:20 07/30/19 04:41 Additional Labs: Labs and MARs reviewed by me EKG Reviewed by me: Yes (Tele: NSR) Hospitalist ROS - Review of Systems Respiratory: reports: cough, SOB with excertion. denies: dry, shortness of breath, hemoptysis, pleuritic pain, sputum, wheezing Cardiovascular: denies: chest pain, palpitations, orthopnea, paroxysmal noc. dyspnea, edema, light headedness - Medication Medications: Active Medications Generic Name Dose Route Start Last Admin Trade Name Freq PRN Reason Stop Dose Admin Acetaminophen 650 mg 07/26/19 15:28 07/27/19 12:18 Tylenol Elixir PO 650 mg Q4H PRN Administration Fever/Mild Pain (1-3) Albuterol/Ipratropium 3 ml 07/28/19 13:00 07/30/19 14:57 Duoneb NEB 3 ml [id number] PAULA Administration Clopidogrel Bisulfate 75 mg 07/27/19 09:00 07/30/19 09:57 Plavix PO 75 mg DAILY PAULA Administration Enoxaparin Sodium 40 mg 07/27/19 09:00 04/04/20 09:57 Lovenox SC 40 mg 0900 PAULA Administration Potassium Chloride 40 meq/ 100 mls @ 50 mls/hr 07/27/19 05:42 07/28/19 04:43 Device IVPB 100 mls ASDIR PRN Administration FOR SERUM K+ 2.5 - 3.5 Magnesium Sulfate 2 gm/ Device 50 mls @ 50 mls/hr 07/27/19 05:42 07/27/19 06: 08 IVPB 50 mls ASDIR PRN Administration MAGNESIUM < 1.4 Norepinephrine Bitartrate 8 mg 250 mls @ 0 mls/hr 07/28/19 04:44 07/28/19 04: 49 / Dextrose/Water IVPB 250 mls INF PRN Administration TO MAINTAIN MAP > 65 Protocol As Directed Levofloxacin 750 mg 07/30/19 06:00 07/30/19 05:41 Levaquin PO 08/05/19 06:01 750 mg 0600 PAULA Administration Magnesium Oxide 400 mg 07/27/19 05:42 07/28/19 18:35 Magnesium Oxide PO 400 mg BIDPRN PRN Administration FOR SERUM MAG 1.4 - 2.0 Methylprednisolone Sodium Succinate 40 mg 07/29/19 09:00 07/30/19 09:57 Solu-Medrol IVP 40 mg BID PAULA Administration Metoprolol Succinate 50 mg 07/29/19 09:00 07/30/19 09:57 Toprol Xl PO 50 mg DAILY PAULA Administration Mometasone Furoate/Formoterol Fumar 2 puff 07/28/19 18:30 07/30/19 06:57 Dulera 200 Mcg/5 Mcg Inhaler INH 2 puff BID-RT PAULA Administration Potassium Chloride 40 meq 07/27/19 05:42 07/28/19 19:15 K-Dur PO 40 meq ASDIR PRN Administration FOR SERUM K+ 2.5 - 3.5 Potassium Chloride 40 meq 07/27/19 05:42 07/29/19 05:50 Klor-Con PER TUBE 40 meq ASDIR PRN Administration FOR SERUM K+ 2.5-3.5 Sertraline HCl 100 mg 07/29/19 09:00 07/30/19 09:57 Zoloft PO 100 mg DAILY PAULA Administration Sodium Chloride 10 ml 07/26/19 09:00 07/30/19 09:58 Flush - Normal Saline IVF 10 ml Q12HR PAULA Administration - Exam General Appearance: awake alert Eye: anicteric sclera ENT: moist mucosa Neck: supple Heart: RRR Respiratory: CTAB Gastrointestinal: soft, non-tender Extremities: no cyanosis Psychiatric: normal affect, normal behavior Hosp A/P - Plan continue antibiotics, PT/OT, out of bed/ambulate Hosp A/P - Impression (1) Aspiration pneumonia Code(s): J69.0 - PNEUMONITIS DUE TO INHALATION OF FOOD AND VOMIT Status: Acute (2) Small cell carcinoma of right lung Code(s): C34.91 - MALIGNANT NEOPLASM OF UNSP PART OF RIGHT BRONCHUS OR LUNG Status: Chronic (3) History of coronary artery stent placement Code(s): Z95.5 - PRESENCE OF CORONARY ANGIOPLASTY IMPLANT AND GRAFT Status: Chronic (4) Suspected COVID-19 virus infection Code(s): R68.89 - OTHER GENERAL SYMPTOMS AND SIGNS Status: Ruled out (5) Sepsis Code(s): A41.9 - SEPSIS, UNSPECIFIED ORGANISM Status: Resolved - Plan s/p extubation continue oral levofloxacin Appreciate oncology service input
[2019-07-31] MEDS: Mometasone 200 MCG/Formoterol 5 MCG 120 PUFF INHALER INH SCH ×2 (07:01→18:25)
[2019-07-31] MEDS: Enoxaparin Sodium 40 MG/0.4 ML SYRINGE SC SCH (08:42)
[2019-07-31] MEDS: Clopidogrel Bisulfate 75 MG TAB PO SCH (08:43)
[2019-07-31] MEDS: methylPREDNISolone Sod Succ 40 MG VIAL IVP SCH ×2 (08:43→20:52)
--- NOTE | 2019-07-31 19:24 | PRG ---
DATE OF SERVICE: 07/31/2019 SUBJECTIVE: Ms. Block is having increasing breathing difficulty. She is now requiring higher FiO2 and rapidly desaturate when converted from Ventimask to nasal cannula. She has required more breathing treatments today and when I try to talk to her, she will not answer in any words and only with infrequent nodding of her head. I have asked her about progression of her cancer and asked if she wishes DNR status. She initially did not answer me, but I heard back from the therapists shortly thereafter that she had expressed an interest in the ventilator care. I have called the patient's family and spoken with her daughter. I have told them that her cancer seems to be worse and that she now has obstruction and atelectasis involving a large part of the right lung. In that case, size of the tumor is not as critical as the location and progression thereof. They have been hearing from her, but denied that they have been getting a lot of direction from the physicians. I have strongly encouraged them to talk amongst themselves and to consider taking her home on hospice/palliative care. I think it may even be challenging to do that with her current oxygen demands. I am concerned that the patient is not fully competent to make her DNR decisions and the family is somewhat in agreement in that regard. I have told them that I would be surprised if she is not in crisis in the next 24 to 48 hours. They will try to talk amongst themselves today and be in touch with her oncologist and Dr. Castellanos tomorrow for more direction. PHYSICAL EXAMINATION: VITAL SIGNS: Blood pressure 133/68. She is afebrile. Heart rate in the low 100s, respiratory rate in the mid 20s. Saturation is 90% on 5 L and she has now been converted to 30%. GENERAL: She has increased work of breathing. She is nonverbal to me and only does some nodding. I think this is because she is focused on her breathing, but also trying to ignore the conversations, which need to be had. NECK: On exam, she has external jugular venous distention. LUNGS: She has no significant breath sounds today in the right anterior chest. The left lung is clear. HEART: Tachycardic, but without murmur. EXTREMITIES: She has 1+ edema. LABORATORY DATA: None today. IMPRESSION: 1. 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 2. Chronic obstructive pulmonary disease. 3. Respiratory distress secondary to above. RECOMMENDATIONS: We will continue nebs, oxygen, and supportive care. I have had a long conversation with the patient's family and encouraged them to have conversation regarding hospice care. I have tried to make them aware that she very well may have respiratory failure in the next 24 hours. They will be in touch with the oncologist and Dr. Castellanos tomorrow. Job ID: [id number]
[2019-07-31 21:15] VITALS: BP 131/60
--- NOTE | 2019-07-31 21:46 | PDOC.HOSPP ---
- Subjective Encounter Date: 07/31/19 Encounter Time: 20:00 Subjective: Pt seen for followup re: aspiration pneumonia. More lethargic today, not answering questions. Could not complete ROS. - Objective Vital Signs & Weight: Vital Signs (12 hours) Temp Pulse Resp BP Pulse Ox 07/31/19 20:15 98.0 F 95 07/31/19 19:24 98.3 F 102 H 12 131/60 100 07/31/19 18:37 100 20 93 L 07/31/19 18:25 104 H 24 H 90 L 07/31/19 16:00 97.3 F L 106 H 22 H 133/68 95 07/31/19 13:39 93 20 07/31/19 12:00 97.6 F 92 22 H 135/76 92 L Weight Admit Weight 153 lb 0.013 oz Weight 154 lb 6.4 oz Most Recent Monitor Data Heart Rate from ECG 102 NIBP 124/63 NIBP BP-Mean 83 Respiration from ECG 23 SpO2 95 I&O: 07/30/19 07/31/19 08/01/19 06:59 06:59 06:59 Intake Total 1488 340 350 Output Total 1135 970 600 Balance 579 -238 -699 Result Diagrams: 07/27/19 04:20 07/30/19 04:41 Additional Labs: Labs and MARs reviewed by me EKG Reviewed by me: Yes (Tele: NSR) Hospitalist ROS - Review of Systems ROS unobtainable: due to mental status - Medication Medications: Active Medications Generic Name Dose Route Start Last Admin Trade Name Freq PRN Reason Stop Dose Admin Acetaminophen 650 mg 07/26/19 15:28 07/27/19 12:18 Tylenol Elixir PO 650 mg Q4H PRN Administration Fever/Mild Pain (1-3) Albuterol/Ipratropium 3 ml 07/28/19 13:00 07/31/19 18:37 Duoneb NEB 3 ml [id number] PAULA Administration Clopidogrel Bisulfate 75 mg 07/27/19 09:00 07/31/19 08:43 Plavix PO 75 mg DAILY PAULA Administration Enoxaparin Sodium 40 mg 07/27/19 09:00 07/31/19 08:42 Lovenox SC 40 mg 0900 PAULA Administration Potassium Chloride 40 meq/ 100 mls @ 50 mls/hr 07/27/19 05:42 07/28/19 04:43 Device IVPB 100 mls ASDIR PRN Administration FOR SERUM K+ 2.5 - 3.5 Magnesium Sulfate 2 gm/ Device 50 mls @ 50 mls/hr 07/27/19 05:42 07/27/19 06: 08 IVPB 50 mls ASDIR PRN Administration MAGNESIUM < 1.4 Norepinephrine Bitartrate 8 mg 250 mls @ 0 mls/hr 07/28/19 04:44 07/28/19 04: 49 / Dextrose/Water IVPB 250 mls INF PRN Administration TO MAINTAIN MAP > 65 Protocol As Directed Levofloxacin 750 mg 07/30/19 06:00 07/31/19 06:11 Levaquin PO 08/05/19 06:01 750 mg 0600 PAULA Administration Magnesium Oxide 400 mg 07/27/19 05:42 07/28/19 18:35 Magnesium Oxide PO 400 mg BIDPRN PRN Administration FOR SERUM MAG 1.4 - 2.0 Methylprednisolone Sodium Succinate 40 mg 07/29/19 09:00 07/31/19 20:52 Solu-Medrol IVP 40 mg BID PALUA Administration Metoprolol Succinate 50 mg 07/29/19 09:00 07/31/19 08:43 Toprol Xl PO 50 mg DAILY PAULA Administration Mometasone Furoate/Formoterol Fumar 2 puff 07/28/19 18:30 07/31/19 18:25 Dulera 200 Mcg/5 Mcg Inhaler INH 2 puff BID-RT PAULA Administration Potassium Chloride 40 meq 07/27/19 05:42 07/28/19 19:15 K-Dur PO 40 meq ASDIR PRN Administration FOR SERUM K+ 2.5 - 3.5 Potassium Chloride 40 meq 07/27/19 05:42 07/29/19 05:50 Klor-Con PER TUBE 40 meq ASDIR PRN Administration FOR SERUM K+ 2.5-3.5 Sertraline HCl 100 mg 07/29/19 09:00 07/31/19 08:43 Zoloft PO 100 mg DAILY PAULA Administration Sodium Chloride 10 ml 07/26/19 09:00 07/31/19 20:52 Flush - Normal Saline IVF 10 ml Q12HR PAULA Administration - Exam ENT: moist mucosa Neck: supple Heart: RRR Respiratory - other findings: Diminished air entry dangelo bases Gastrointestinal: soft, normal bowel sounds Psychiatric - other findings: Unable to assess Hosp A/P - Plan Hosp A/P - Assessment (1) Aspiration pneumonia Code(s): J69.0 - PNEUMONITIS DUE TO INHALATION OF FOOD AND VOMIT Status: Acute (2) History of coronary artery stent placement Code(s): Z95.5 - PRESENCE OF CORONARY ANGIOPLASTY IMPLANT AND GRAFT Status: Chronic (3) Small cell carcinoma of right lung Code(s): C34.91 - MALIGNANT NEOPLASM OF UNSP PART OF RIGHT BRONCHUS OR LUNG Status: Chronic (4) Suspected COVID-19 virus infection Code(s): R68.89 - OTHER GENERAL SYMPTOMS AND SIGNS Status: Ruled out (5) Sepsis Code(s): A41.9 - SEPSIS, UNSPECIFIED ORGANISM Status: Resolved - Plan Pt was transfered to [facility] for worsening clinical status. Continue levofloxacin and IV solu-medrol. Oncology/PCCM following. Check AM labs.
[2019-07-31] MEDS ORDERED: Metoprolol Tartrate 100 MG TAB PO SCH (22:00)
[2019-08-01 04:01] LABS: Anion Gap 13 mmol/L (10-20); BUN (Urea Nitrogen) 13 mg/dL (9.8-20.1); Calc. Creatinine Clearance 149 mL/min (70-130); Calcium 8.6 mg/dL (7.8-10.44); Carbon Dioxide 34 mmol/L (23-31); Chloride 99 mmol/L (98-107); Estimated GFR-MDRD Greater than 90; Glucose 115 mg/dL (80-115); Potassium 3.6 mmol/L (3.5-5.1); Sodium 142 mmol/L (136-145)
[2019-08-01 04:13] LABS: #Lymphocytes 0.7 thou/uL (1.20-3.40); #Monocytes 0.5 thou/uL (0.11-0.59); #Neutrophils 7.9 thou/uL (1.40-6.50); %Basophils 0.1 % (0.0-1.0); %Eosinophils 0.3 % (0.0-10.0); %Lymphocytes 7.9 % (21.0-51.0); %Monocytes 5.2 % (0.0-10.0); %Neutrophils 86.5 % (42.0-75.0); Hemoglobin 9.6 g/dL (12.0-16.0); Mean Corpuscular HGB CONC 32.4 g/dL (32.0-36.0); Mean Corpuscular Hemoglobin 26.8 pg (27.0-31.0); Mean Corpuscular Volume 82.8 fL (78.0-98.0); Mean Platelet Volume 8.9 fL (7.4-10.4); Platelet Count 112 thou/uL (130-400); Platelet Morphology Comment Appears Decreased; RBC Distribution Width 15.8 % (11.5-14.5); Red Blood Cell (RBC) Count 3.57 mill/uL (4.20-5.40); White Blood Cell (WBC) Count 9.2 thou/uL (4.8-10.8)
[2019-08-01] MEDS: Mometasone 200 MCG/Formoterol 5 MCG 120 PUFF INHALER INH SCH (08:04)
[2019-08-01] MEDS: methylPREDNISolone Sod Succ 40 MG VIAL IVP SCH (09:33)
--- NOTE | 2019-08-01 10:36 | PDOC.HOSPP ---
- Subjective Encounter Date: 08/01/19 Encounter Time: 10:35 Subjective: Non-responsive to verbal interaction. - Objective Vital Signs & Weight: Vital Signs (12 hours) Temp Pulse Resp Pulse Ox 08/01/19 08:04 103 H 19 100 08/01/19 07:19 96.0 F L 08/01/19 04:00 94 L 08/01/19 03:40 98.6 F 08/01/19 00:58 97 08/01/19 00:54 96 07/31/19 23:18 97.9 F Weight Admit Weight 153 lb 0.013 oz Weight 155 lb 3 oz Most Recent Monitor Data Heart Rate from ECG 107 NIBP 131/82 NIBP BP-Mean 98 Respiration from ECG 25 SpO2 96 I&O: 07/31/19 08/01/19 08/02/19 06:59 06:59 06:59 Intake Total 340 400 Output Total 970 1250 Balance -630 850 Result Diagrams: 08/01/19 03:06 08/01/19 03:06 Hospitalist ROS - Medication Medications: Active Medications Generic Name Dose Route Start Last Admin Trade Name Freq PRN Reason Stop Dose Admin Acetaminophen 650 mg 07/26/19 15:28 07/27/19 12:18 Tylenol Elixir PO 650 mg Q4H PRN Administration Fever/Mild Pain (1-3) Albuterol/Ipratropium 3 ml 07/28/19 13:00 08/01/19 08:04 Duoneb NEB 3 ml [id number] PAULA Administration Clopidogrel Bisulfate 75 mg 07/27/19 09:00 07/31/19 08:43 Plavix PO 75 mg DAILY PAULA Administration Enoxaparin Sodium 40 mg 07/27/19 09:00 07/31/19 08:42 Lovenox SC 40 mg 0900 PAULA Administration Potassium Chloride 40 meq/ 100 mls @ 50 mls/hr 07/27/19 05:42 07/28/19 04:43 Device IVPB 100 mls ASDIR PRN Administration FOR SERUM K+ 2.5 - 3.5 Magnesium Sulfate 2 gm/ Device 50 mls @ 50 mls/hr 07/27/19 05:42 07/27/19 06: 08 IVPB 50 mls ASDIR PRN Administration MAGNESIUM < 1.4 Norepinephrine Bitartrate 8 mg 250 mls @ 0 mls/hr 07/28/19 04:44 07/28/19 04: 49 / Dextrose/Water IVPB 250 mls INF PRN Administration TO MAINTAIN MAP > 65 Protocol As Directed Magnesium Oxide 400 mg 07/27/19 05:42 07/28/19 18:35 Magnesium Oxide PO 400 mg BIDPRN PRN Administration FOR SERUM MAG 1.4 - 2.0 Methylprednisolone Sodium Succinate 40 mg 07/29/19 09:00 08/01/19 09:33 Solu-Medrol IVP 40 mg BID PAULA Administration Metoprolol Succinate 50 mg 07/29/19 09:00 07/31/19 08:43 Toprol Xl PO 50 mg DAILY PAULA Administration Mometasone Furoate/Formoterol Fumar 2 puff 07/28/19 18:30 08/01/19 08:04 Dulera 200 Mcg/5 Mcg Inhaler INH 2 puff BID-RT PAULA Administration Potassium Chloride 40 meq 07/27/19 05:42 07/28/19 19:15 K-Dur PO 40 meq ASDIR PRN Administration FOR SERUM K+ 2.5 - 3.5 Potassium Chloride 40 meq 07/27/19 05:42 07/29/19 05:50 Klor-Con PER TUBE 40 meq ASDIR PRN Administration FOR SERUM K+ 2.5-3.5 Sertraline HCl 100 mg 07/29/19 09:00 07/31/19 08:43 Zoloft PO 100 mg DAILY PAULA Administration Sodium Chloride 10 ml 07/26/19 09:00 07/31/19 20:52 Flush - Normal Saline IVF 10 ml Q12HR PAULA Administration - Exam General Appearance: NAD, awake alert Heart: RRR, no murmur, no gallops, no rubs, normal peripheral pulses Respiratory: tachypneic Respiratory - other findings: accessory muscle use. Gastrointestinal: soft, non-distended Extremities: no cyanosis, no clubbing, no edema Skin: normal turgor Musculoskeletal: generalized weakness Psychiatric - other findings: Awake, minimal eye contact/tracking. Encephalopathic Hosp A/P (1) Aspiration pneumonia Code(s): J69.0 - PNEUMONITIS DUE TO INHALATION OF FOOD AND VOMIT Status: Acute (2) History of coronary artery stent placement Code(s): Z95.5 - PRESENCE OF CORONARY ANGIOPLASTY IMPLANT AND GRAFT Status: Acute (3) Small cell carcinoma of right lung Code(s): C34.91 - MALIGNANT NEOPLASM OF UNSP PART OF RIGHT BRONCHUS OR LUNG Status: Acute (4) Decreased oral intake Code(s): R63.8 - OTHER SYMPTOMS AND SIGNS CONCERNING FOOD AND FLUID INTAKE Status: Acute (5) Acute on chronic respiratory failure with hypoxia Code(s): J96.21 - ACUTE AND CHRONIC RESPIRATORY FAILURE WITH HYPOXIA Status: Acute (6) Sepsis Code(s): A41.9 - SEPSIS, UNSPECIFIED ORGANISM Status: Acute - Plan Too weak to take meds orally. Discussed with [employer]. Ice chips ok. Changed Levaquin to IV. Discussed with PCT. Patient does not have capacity to make decisions now. They have discussed with her . He has made her DNAR and wants to pursue hospice. PCT will put in orders for the hospice eval.
--- NOTE | 2019-08-01 10:38 | PRG ---
DATE OF SERVICE: 08/01/2019 SUBJECTIVE: The patient appears to be a little bit more short of breath this morning. OBJECTIVE: VITAL SIGNS: Pulse 103, respirations 20, saturations are 100% on 40% Ventimask, blood pressure CHEST: Extensive rhonchi and crackles. CARDIAC: Normal S1 and S2. No gallops. ABDOMEN: No masses. LABORATORY DATA: White count is normal. Lytes are normal. ASSESSMENT: Respiratory failure secondary to chronic obstructive pulmonary disease; underlying small cell carcinoma, extensive. PLAN: The patient's condition appears to have worsened over the last 24 to 48 hours. I am not so sure if she is re-intubated, whether she is going to survive the intubation. We will discuss with her Oncology regarding ongoing care. She is apparently full code as per the family's wishes and the patient's wishes. We will continue antibiotics, neb treatments, steroids. Prognosis is grave. Job ID: [id number]
[2019-08-01 11:11] VITALS: TEMP 97
[2019-08-01] MEDS: Clopidogrel Bisulfate 75 MG TAB PO SCH (12:44)
[2019-08-01 13:10] VITALS: BMI 27.4
[2019-08-01] MEDS ORDERED: Morphine 2 MG/ML SYRINGE SLOW IVP PRN ×2 (13:55→13:59)
--- NOTE | 2019-08-01 15:44 | PDOC.PALPN ---
Palliative Progress Note - Subjective Labored respirations, slight accessory muscle use. - Objective Vital Signs: Vital Signs - Most Recent Temp Pulse Resp BP Pulse Ox 97.0 F L 107 H 28 H 131/60 98 08/01/19 11:10 08/01/19 11:53 08/01/19 11:53 07/31/19 19:24 08/01/19 11:53 - Physical Exam Constitutional: ill appearing, mild distress HEENT: EOMI, moist MMs, sclera anicteric Respiratory: accessory muscle use, labored respirations Cardiovascular: RRR Genitourinary: incontinent Musculoskeletal: no clubbing, diffuse muscle atrophy Neurology: moves all 4 limbs Skin: fragile Psychiatric: flat affect - Assessment (1) Acute on chronic respiratory failure with hypoxia Code(s): J96.21 - ACUTE AND CHRONIC RESPIRATORY FAILURE WITH HYPOXIA Current Visit: Yes Status: Acute (2) Aspiration pneumonia Code(s): J69.0 - PNEUMONITIS DUE TO INHALATION OF FOOD AND VOMIT Current Visit : Yes Status: Acute (3) Small cell carcinoma of right lung Code(s): C34.91 - MALIGNANT NEOPLASM OF UNSP PART OF RIGHT BRONCHUS OR LUNG Current Visit: Yes Status: Acute (4) Palliative care encounter Code(s): Z51.5 - ENCOUNTER FOR PALLIATIVE CARE Current Visit: No Status: Acute - Plan Plan: Patient unable to fully participate in ROS. Tachypnea. Family discussed goal of care with Thomas Treviño RN this morning, will transition to hospice and as well as DNAR. *Hospice consult secondary to poor meaningful recovery *Transition to DNAR *MSO4 2 mg IVP for shortness of breath/anxiety [30] minutes spent on this encounter with >50% of the time in counseling and coordination of care. - ROS Non Response: due to mental status
--- NOTE | 2019-08-02 10:20 | DIS ---
DATE OF ADMISSION: 07/26/2019 DATE OF DISCHARGE: 08/01/2019 DISCHARGE DIAGNOSES: 1. Acute hypoxic respiratory failure. 2. Aspiration pneumonia. 3. Small cell carcinoma of the lung. 4. Coronary artery disease. 5. Sepsis. 6. Acute metabolic encephalopathy. 7. Poor p.o. intake. 8. History of hypertension. HISTORY: The patient is a 68-year-old female, who had been diagnosed with lung cancer in March 2019, followed by the Oncology Clinic. The patient presented to the emergency department apparently after developing fairly abrupt onset of shortness of breath after having visited the restroom, the patient was brought to the emergency department, where she was found to have cyanosis and was subsequently intubated. CT showed complete atelectasis of the right upper lobe and interval near atelectasis of the right lower lobe opacification of multifocal right lower lobe bronchi compatible with aspiration. She was admitted to the ICU. HOSPITAL COURSE: She was seen in consultation by Pulmonary/Critical Care and by Oncology. She was ultimately extubated. However, she continued to have progressive worsening of her dyspnea. Subsequently, remained in the intermediate care unit. She was increasingly encephalopathic. Initially, had indicated she did not want to be DNR, but as her situation progressed and she became encephalopathic, conversations were directed towards the patient's family. The family ultimately were able to come together and discuss the patient's situation in light of her cancer diagnosis, worsening prognosis. They decided to pursue hospice once meeting with hospice and arrangements were made and the patient was accepted to hospice for home. PHYSICAL EXAMINATION: VITAL SIGNS: On the day of discharge, blood pressure 138/77, heart rate was 100s, respiratory rate was 25 and labored. HEART: Regular. LUNGS: Very diminished with some scattered rales. ABDOMEN: Benign. DISPOSITION: The patient is discharged to home to the care of hospice. She was to continue her usual home medications as tolerated, although she appeared to be too weak, encephalopathic, and short of breath, to be able to take p.o. significantly. Further plan for treatment will be per the Hospice Team. She has no dietary restrictions and her activity is as tolerated. Followup will be per hospice. Time spent in discharge activities was greater than 30 min. Job ID: [id number] [facility]
== END 2019-08-01 14:50 | disposition hospice, inpatient (51) | DRG 208 ==
LOC: ERS 05:55 → CCU 06:04 → 2NO 07-29 11:40 → IMCU/EMU 07-31 20:03
PROVIDERS: ADMIT Internal Medicine; ATTEND Internal Medicine
PROC: 5A1945Z Respiratory Ventilation, 24-96 Consecutive Hours (ICD-10-PCS; principal; 2019-07-26)
PROC: 0BH17EZ Insertion of Endotracheal Airway into Trachea, Via Natural or Artificial Opening (ICD-10-PCS; 2019-07-26)
PROC: 06HY33Z Insertion of Infusion Device into Lower Vein, Percutaneous Approach (ICD-10-PCS; 2019-07-26)
PROC: 3E033XZ Introduction of Vasopressor into Peripheral Vein, Percutaneous Approach (ICD-10-PCS; 2019-07-26)
PROC: 8E0ZXY6 Isolation (ICD-10-PCS; 2019-07-26)
DX: J96.21 Acute and chronic respiratory failure with hypoxia (principal); A40.0 Sepsis due to streptococcus, group A; R65.21 Severe sepsis with septic shock; J69.0 Pneumonitis due to inhalation of food and vomit; G93.41 Metabolic encephalopathy; E87.2 Acidosis; C34.11 Malignant neoplasm of upper lobe, right bronchus or lung; J44.1 Chronic obstructive pulmonary disease with (acute) exacerbation; Z66 Do not resuscitate; Z51.5 Encounter for palliative care; F41.9 Anxiety disorder, unspecified; F32.9 Major depressive disorder, single episode, unspecified; I25.10 Atherosclerotic heart disease of native coronary artery without angina pectoris; I27.20 Pulmonary hypertension, unspecified; I10 Essential (primary) hypertension; E78.5 Hyperlipidemia, unspecified; K21.9 Gastro-esophageal reflux disease without esophagitis; Z95.5 Presence of coronary angioplasty implant and graft; Z90.49 Acquired absence of other specified parts of digestive tract; Z90.710 Acquired absence of both cervix and uterus; Z88.1 Allergy status to other antibiotic agents; Z88.0 Allergy status to penicillin; Z79.899 Other long term (current) drug therapy; Z79.02 Long term (current) use of antithrombotics/antiplatelets
CPT/HCPCS: 31500; 36415; 36416; 36556; 43752; 51702; 71045; 71275; 77336; 77412; 80048; 80053; 80202; 81003; 81015; 82805; 83605; 83735; 84145; 85025; 86140; 87040; 87070; 87086; 87149; 87205; 87449; 87633; 87804; 87899; 93005; 93306; 94002; 94003; 94640; 94760; 96361; 96365; 96366; 96367; 96368; 96376; 99292; J1650; J1956; J2270; J2543; J2704; J2920; J3010; J3370; J3475; J3480; J3490; J7070; J7611; J7620; Q9967; U0001